=== PATIENT | female | born 1960 | race Caucasian/White ===

== ENCOUNTER 2022-06-09 15:01 | Outpatient (CLI) | payer OTHER, SELFPAY ==
--- OUTSIDE RECORDS SUMMARY | 2022-06-09 15:03 | XMS_ITS | Encounter Summary ---
:1960 Author Organization [employer] Address [address] [place] [address] Care Team Providers Name Role Phone Adarsh Salazar MD Primary Care Provider Reason for Referral Therapies (Routine) - Closed Specialty Diagnoses / Procedures Referred By Contact Refer red To Contact Diagnoses S/P total knee arthroplasty, left Rodney Moore MD [address] [place] [address] [place], [place] [address] Referral ID Status Reason Start Date Expiration Date Visits Requ ested Visits Authorized [id number] Closed 04/06/2018 06/05/2018 1 1 Scheduling Instructions If scheduling assistance is needed, cha mahan inquire with the medical office staff upon exiting your appointment or contact the ordering clinic for recommended locations. This recommended service/s may not be co armaan by your insurance coverage. To find out your specific benefit coverage, please c all the number on your insurance card. Reason for Visit Reason Comments AFTERCARE, POST-OP CHECK Left Knee Encounter Details Date Type Department Care Team Description 04/06/2018 Office Visit [facility] Rodney Moore MD S/P total knee arthroplasty, left (Prima ry Dx); CENTER [address] [place] [address] Surgical afterarnold, musculoskeletal syst em; [address] [place], [place] Carpal tunnel syndrome, [place] [id number] [phone] Social History Tobacco Use Types Packs/Day Years Used Date Smoking Tobacco: Never Smokeless Tobacco: Never Sex Assigned at Date Recorded Not on file documented as of this encounter Progress Notes Rodney Moore MD - 04/06/2018 8:50 AM CDT [facility] Orthopaedic Surgery Postoperative Follow-Up 04/06/2018 History of Present Illness: Celeste Eid is a 58 y.o. female status-post left knee total arthroplasty completed on 02/11/18 who presents for postoperative follow-up. I last evaluated the patient on 03/14/18, at which time she felt some pinching pain around the tibia. However, she felt she had been progressing well within her recovery while compliant with physical therapy. After discussion, she elected to continue working on range of motion with physical therapy. Today, the patient reports feeling better. States that the pinching pain from before has moderately subsided. She has been progressing while compliant with physical therapy. However, she is now more concerned about numbness diffusely throughout her bilateral hands, left greater than right. Feels the numbness the most when driving her car. Physical Exam: General: The patient is in no acute distress. She ambulates with a non-antalgic gait. Cardiovascular/Neuro: Sensation, motor function, and circulation are intact in the distal lower extremities. Left Knee: Range of motion is 0-115 degrees of flexion. Ambulating with a mild limp. Bilateral Hands: No thenar muscle atrophy. Sensations intact. Tinel's Test is negative bilaterally. Positive carpal compression test bilaterally. Phalen's test is negative bilaterally. Assessment: ICD-10-CM 1. S/P total knee arthroplasty, left Z96.652 2. Surgical aftercare, musculoskeletal system Z47.89 3. Carpal tunnel syndrome, bilateral G56.03 Plan: She will continue with her rehab exercises. Follow-up examination one year postoperatively with x-rays, 3 views of the left knee. As for her bilateral hands, her exam is consistent with carpal tunnel syndrome in her bilateral hands. We will consider an EMG study if her symptoms worsen; she is to call if it does. Meanwhile, she will wear a brace at night. All questions were answered. Scribe Disclosure: Horacio Alvarez, am serving as a scribe to document services personally performed by Rodney Moore MD at this visit, based upon the provider's statements to me. All documentation has been reviewed by theaforementioned provider prior to being entered into the official medical record. Portions of this medical record were completed by a scribe. UPON MY REVIEW AND AUTHENTICATION BY ELECTRONIC SIGNATURE, this confirms (a) I performed the applicable clinical services, and (b) the recordis accurate. Rodney Moore MD documented in this encounter Plan of Treatment Scheduled Referrals Name Type Priority Associated Diagnoses Order S [facility] Physical Therapy Referral Routine S/P total knee arthropla sty, Ordered: 04/06/2018 left documented as of this encounter Visit Diagnoses Diagnosis S/P total knee arthroplasty, left - Prim asher Surgical aftercare, musculoskeletal syst em [facility], NEC Carpal tunnel syndrome, bilateral Carpal tunnel syndrome documented in this encounter Care Teams Bicycle Technician Relationship Specialty Start Date End Date Adarsh Salazar MD PCP - General Urgent Care 02/11/18 [address] [place] [address] documented as of this encounter
--- OUTSIDE RECORDS SUMMARY | 2022-06-09 15:03 | XMS_ITS | Encounter Summary ---
:1960 Author Organization [email or web address] Address [address] [place] [address] Care Team Providers Name Role Phone Adarsh Salazar MD Primary Care Provider Reason for Visit Reason Comments Knee Pain or Injury left Encounter Details Date Type Department Care Team Description 03/14/2018 Office Visit [facility] Rodney English MD S/P total knee arthroplasty, left (Prima ry Dx); [address] Aftercare following surgery of the [facility] [address] [place] [address] [phone] Social History Tobacco Use Types Packs/Day Years Used Date Smoking Tobacco: Never Smokeless Tobacco: Never Sex Assigned at Date Recorded Not on file documented as of this encounter Patient Instructions Patient InstructionsSylvia Akhtar ATC - 03/14/2018 2:[address] Rodney Moore MD Orthopaedic Surgeon, Board Certified Automation Qa Tester: Leida Spann Please contact Leida for all administrative questions [phone] Please contact Nurse Triage for all medical related questions at [phone] Medication Requests: Prescriptions are not filled on Weekends or on Weekdays after 3:00PM For all medication refills: Request a refill using MyChart or contact your Pharmacy documented in this encounter Progress Notes Rodney Moore MD - 03/14/2018 2:50 PM CDT [facility] Orthopaedic Surgery Postoperative Follow-Up 03/14/2018 History of Present Illness: Celeste Eid is a 58 y.o. female one month status-post left total knee arthroplasty completed on 02/11/18 who presents for postoperative follow-up. She feels like something pinches around the tibia which she has been working on in physical therapy. Otherwise, she feels like physical therapy has been going well. Icing and tylenol have not helped with the pain. Physical Exam: General: The patient is in no acute distress. She ambulates with a walking stick. Cardiovascular/Neuro: Sensation, motor function, and circulation are intact in the distal lower extremities. Left Knee: Range of motion 0-95 degrees. There is a pinch in the lateral side of her knee at end range or flexion. Imaging: Radiographs of the left knee - 2 views (02/11/18): FINDINGS: New postoperative changes of a left knee arthroplasty. Hardware is well seated without evidence for complication. Postoperative gas about the joint. I ordered and independently reviewed and interpreted the imaging studies above; the results were discussed with the patient. Assessment: ICD-10-CM 1. S/P total knee arthroplasty, left Z96.652 2. Aftercare following surgery of the musculoskeletal system Z47.89 Plan: Work on bending the knee and soft massaging the area of the pinch. Continue with rehab exercises. Take oral antiinflammatories as tolerated. Follow-up in two weeks to check progress. All of her questions were answered. Scribe Disclosure: I, Syh Barreto, am serving as a scribe to document services personally performed by Rodney Moore MD at this visit, based upon the provider's statements to me. All documentation has been reviewed by the aforementioned provider prior to being entered into the official medical record. Portions of this medical record were completed by a scribe. UPON MY REVIEW AND AUTHENTICATION BY ELECTRONIC SIGNATURE, this confirms (a) I performed the applicable clinical services, and (b) the recordis accurate. Rodney Moore MD documented in this encounter Plan of Treatment Not on filedocumented as of this encounter Visit Diagnoses Diagnosis S/P total knee arthroplasty, left - Prim asher Aftercare following surgery of the [facility] system [facility] documented in this encounter Care Teams Oil Painter Relationship Specialty Start Date End Date Adarsh Salazar MD PCP - General Urgent Care 02/11/18 [address] [place] [address] documented as of this encounter
--- OUTSIDE RECORDS SUMMARY | 2022-06-09 15:03 | XMS_ITS | Encounter Summary ---
:1960 Author Organization [facility] Address [address] [place] [address] Care Team Providers Name Role Phone Adarsh Salazar MD Primary Care Provider Reason for Visit Reason Comments APPOINTMENT REQUEST Encounter Details Date Type Department Care Team Description 10/13/2019 Telephone [facility], Physician APPOINTMENT REQUEST Care [address] [place], [place] [phone] (Wo rk) Social History Tobacco Use Types Packs/Day Years Used Date Smoking Tobacco: Never Smokeless Tobacco: Never Sex Assigned at Date Recorded Not on file documented as of this encounter Nursing Notes Earl Mccurdy RN - 10/13/2019 3:06 PM CDT Called and spoke to the patient. Child Care Team Lead offered her a phone/video visit. Patient declined, she wouldlike to have a cortisone injection in her knee. Child Care Team Lead explained to the patient that we are not preforming Cortisone injections because of its side effect of decreasing the immune system and the COVID-19 precautions. Patient voiced understanding. She will call us back if needed. Yesika Roman RN - 10/13/2019 2:57 PM CDT Images from the original note were not included. Omari Sneed, DO You 6 minutes ago (2:50 PM) OK to offer phone or video visit. Routing comment Yesika Roman RN - 10/13/2019 2:25 PM CDT Pt. Asking to come in for a right knee steroid injection. These aren't being done in the [facility] due to the decrease in the immune systems ability to fight off injection. This is due to the current COVID19. Pt. Hasn't been seen here at the [facility] for her right knee. Initially for the left. Dr. Moore has donea left TKA. Advise. Phone/video call? Come in? Medications? Her insurance runs out on and would to do something before this happens. Carmen Aguilar - 10/13/2019 2:11 PM CDT Has the patient recently had surgery or an injury? No How may we help you today? Patient calling in to see if she is able to go to the [facility] for her right knee. She is requesting an injection due to her insurance being done on 10/16. Describe your symptoms/concerns: patient states she is in pain When did the issue start: n/a Have you been seen for this recently?: n/a [Automotive Salesperson/Appt Center: If yes, please include date and provider.] Is it okay to leave detailed message on your voicemail? Yes [Automotive Salesperson/Appt Center: If this call is after 3 p.m., communicate to patient: If we are not able to get back to you by the end of the day and your symptoms worsen please contact the Careline] documented in this encounter Plan of Treatment Not on filedocumented as of this encounter Visit Diagnoses Diagnosis Right knee pain, unspecified chronicity - Primary documented in this encounter Care Teams Principal Archaeologist Relationship Specialty Start Date End Date Adarsh Salazar MD PCP - General Urgent Care 02/11/18 [address] [place] [address] documented as of this encounter
--- OUTSIDE RECORDS SUMMARY | 2022-06-09 15:03 | XMS_ITS | Clinical Summary ---
:1960 Author Organization [facility] Address [address] [place] [address] Care Team Providers Name Role Phone Adarsh Salazar MD Primary Care Provider Source Comments You are receiving this document as you are listed as the primary care provider,follow-up provider, or the patient has been referred to you for consultation.This is in compliance with the Medicare and Medicaid EHR Incentive Program,which states Providers who transition their patient to another setting of careor provider of care or refers their patient to another provider of care shouldprovide summarycare record for each transition of care or referral. [facility] Allergies No known active allergies Medications Medication Sig Dispensed Refills Start End Date Status Date senna (SENOKOT) 8.6 MG Take 1 Tablet by 30 Tablet 0 Active tabletIndications: mouth daily. Take 8 Constipation while on narcotics. Hold for loose stools. Indications: Constipation acetaminophen (TYLENOL) Take 2 Tablets by 100 Tablet 0 01 Active 325 MG mouth 4 times a 8 tabletIndications: Pain day. 24 hour limit of acetaminophen (TYLENOL) is 4000mg. Each tablet contains 325mg of acetaminophen. Please be aware of acetaminophen limit when taking other medications that contain acetaminophen. Indications: Pain HYDROmorphone (DILAUDID) Take 1-2 Tablets 56 Tablet 0 02/12/20 1 Active 2 MG tablet by mouth every 4 8 hours as needed for Pain. Take 1 tablet for pain rated at 0-5. Take 2 tablets for pain rated 6-10. hydroCHLOROthiazide Take 25 mg by 0 Active (ORETIC) 25 MG mouth daily. tabletIndications: Indications: High Hypertension Blood Pressure Disorder Meloxicam (MOBIC) 15 MG Take 15 mg by 0 Active tabletIndications: Pain mouth daily. Indications: Pain metoprolol succinate Take 100 mg by 0 Active (TOPROL XL) 100 MG 24 mouth daily at hour release bedtime. tabletIndications: Indications: High Hypertension Blood Pressure Disorder HYDROcodone-acetaminophe Take 1 Tablet by 30 Tablet 0 02/25/20 1 Active n (NORCO) 5-325 MG mouth every 6 8 tablet hours as needed. For post op pain. oxyCODONE (ROXICODONE) 5 Take 1-2 tablets 42 Tablet 0 02/26/20 1 Active MG immediate release by mouth, every 8 tablet 4-6 hours as needed. Pain Active Problems Problem Noted Date Primary osteoarthritis of left knee 12/20/2017 Overview: Added automatically from request for florence rooney [id number] Family History Medical History Relation Name Comments Heart Disease Father Cancer Mother Cancer Sister Relation Name Status Comments Father Mother Sister Social History Tobacco Use Types Packs/Day Years Used Date Smoking Tobacco: Never Smokeless Tobacco: Never Sex Assigned at Date Recorded Not on file Last Filed Vital Signs Vital Sign Reading Time Taken Comments Blood Pressure 126/65 02/12/2018 10:56 AM CDT Pulse 67 02/12/2018 10:56 AM CDT Temperature 36.6 ??C (97.9 ??F) 02/12/2018 10:56 AM CDT Respiratory Rate 16 02/12/2018 10:56 AM CDT Oxygen Saturation 93% 02/12/2018 10:56 AM CDT Inhaled Oxygen Concentration - - Weight 120.2 kg (265 lb) 02/11/2018 7:29 AM CDT Height 162.6 cm (5' 4) 02/11/2018 7:29 AM CDT Body Mass Index 45.49 02/11/2018 7:29 AM CDT Plan of Treatment Health Maintenance Due Date Last Done Comments Cervical Cancer Screening Due 1960 Colon Cancer Screening Plan Due 1960 Hep C Screening (Preventive 1960 Services) Mammogram 1960 COVID-19 Vaccine (#1) 1960 HIV Screening (Preventive 1975 Services) Adult Preventive Visit 1977 Cholesterol 02/18/2004 Zoster/Shingles (1 of 2) 2009 Influenza (#1) 2022 DTaP/Tdap/Td (2 - Tdap) 03/07/2026 03/07/2016 HepA Aged Out No longer eligib le based on patient's age to complete this topic HepB Aged Out No longer eligib le based on patient's age to complete this topic Hib Aged Out No longer eligib le based on patient's age to complete this topic IPV (Polio) Aged Out No longer eligib le based on patient's age to complete this topic MCV4 Aged Out No longer eligib le based on patient's age to complete this topic Pneumococcal Aged Out No longer eligib le based on patient's age to complete this topic Medical Devices Implanted Type Area Medical Historian Device Shelf Model / Identifier Expiration Date Ser ial / Lot Insert Xlpe Art 3-4 Lt 10mm - [id number] DEVICE Left: S 06/23/2025 [id number] / Implanted: Qty: 1 on 02/11/2018 by Rodney Moore MD at [facility] KNEE 0000 / [id number] Dietiker, Personal/Family Self 1960 [id number] [facility] (Home) [place] [address] Advance Directives Latest Code Status on File Code Status Date Activated Date Inactivated Comments Full Code 02/11/2018 1:26 PM 02/12/2018 5:26 PM Care Teams Half Sole Fitter Relationship Specialty Start Date End Date Adarsh Salazar MD PCP - General Urgent Care 02/11/18 [address] [place] [address]
--- OUTSIDE RECORDS SUMMARY | 2022-06-09 15:03 | XMS_ITS | Encounter Summary ---
:1960 Author Organization [employer] Address [address] [address] Care Team Providers Name Role Phone Adarsh Salazar MD Primary Care Provider Reason for Visit Reason Comments Return to Work/School Encounter Details Date Type Department Care Team Description 03/17/2018 Telephone [facility] Rodney Moore MD Return to Work/School [place] [address] [facility] [address] [place], [place] [phone] (Wo rk) Social History Tobacco Use Types Packs/Day Years Used Date Smoking Tobacco: Never Smokeless Tobacco: Never Sex Assigned at Date Recorded Not on file documented as of this encounter Nursing Notes Radha Jones RN - 03/18/2018 4:00 PM CDT RTW form faxed to Liseth Briggs at [phone]. Pt informed. Leida Spann - 03/18/2018 1:09 PM CDT Leida, ??Will you create a note allowing her to return to work as requested. Thanks, Rodney Routed to nurse triage to assist with witting and signing note. 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 Thank you! Radha Jones, RN - 03/17/2018 1:42 PM CDT Pt would like to return to work March 23 and would like note stating this. States she has made progress and has a sit down job, the pinch has improved greatly in her leg. Feels she does more at home then she would be doing at work. States financially needs to get back to work. Would like faxed to her work at [phone]. Pt requests call when note completed and to let her know it'lu to return to work. documented in this encounter Plan of Treatment Not on filedocumented as of this encounter Visit Diagnoses Not on filedocumented in this encounter Care Teams Motorboat Mechanic Helper Relationship Specialty Start Date End Date Adarsh Salazar MD PCP - General Urgent Care 02/11/18 [address] [place] [address] documented as of this encounter
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
--- OUTSIDE RECORDS SUMMARY | 2022-06-09 15:03 | XMS_ITS | Encounter Summary ---
:1960 Author Organization [facility] Address [address], [place] [address] Care Team Providers Name Role Phone Adarsh Salazar MD Primary Care Provider Encounter Details Date Type Department Care Team Description 05/14/2019 Notes/Orders [facility] Rodney Gloria MD [address] [place] [address] [place], [place] [address] [place] [address] [phone] (Wo rk) Social History Tobacco Use Types Packs/Day Years Used Date Smoking Tobacco: Never Smokeless Tobacco: Never Sex Assigned at Date Recorded Not on file documented as of this encounter Plan of Treatment Not on filedocumented as of this encounter Visit Diagnoses Not on filedocumented in this encounter Care Teams Digital Solution Architect Relationship Specialty Start Date End Date Adarsh Salazar MD PCP - General Urgent Care 02/11/18 [address] [place] [address] documented as of this encounter
--- OUTSIDE RECORDS SUMMARY | 2022-06-09 15:03 | XMS_ITS | Encounter Summary ---
:1960 Author Organization [facility] Address [address], [place] [address] Care Team Providers Name Role Phone Adarsh Salazar MD Primary Care Provider Encounter Details Date Type Department Care Team Description 07/01/2018 Notes/Orders [facility] Rodney Gloria MD [address] [place] [address] [place], [place] [address] [place] [address] [phone] (Wo rk) Social History Tobacco Use Types Packs/Day Years Used Date Smoking Tobacco: Never Smokeless Tobacco: Never Sex Assigned at Date Recorded Not on file documented as of this encounter Plan of Treatment Not on filedocumented as of this encounter Visit Diagnoses Not on filedocumented in this encounter Care Teams Manager People Relationship Specialty Start Date End Date Adarsh Salazar MD PCP - General Urgent Care 02/11/18 [address] [place] [address] documented as of this encounter
--- OUTSIDE RECORDS SUMMARY | 2022-06-09 15:03 | XMS_ITS | Encounter Summary ---
:1960 Author Organization [facility] Address [address] [place] [address] Care Team Providers Name Role Phone Adarsh Salazar MD Primary Care Provider Reason for Visit Reason Comments Questions Encounter Details Date Type Department Care Team Description 03/09/2018 Telephone [facility] Rodney Moore MD Questions [address] [facility] [place] [address] [place] [address] [phone] (Wo rk) Social History Tobacco Use Types Packs/Day Years Used Date Smoking Tobacco: Never Smokeless Tobacco: Never Sex Assigned at Date Recorded Not on file documented as of this encounter Nursing Notes Monica Tello RN - 03/09/2018 3:26 PM CDT Surgery Date: 02/11/2018 Surgeon(s) and Role: * Rondey Moore MD - Primary ??Procedure(s) (LRB): TOTAL KNEE JOINT REPLACEMENT (Left) Patient is calling wondering if she can back away from narcs and do motrin. Patient admits to taking1/2 oxy to help her sleep at night and another 1/2 after therapy. She would like to back away from the narcs and use motrin to help w/ her swelling. Said Dr. Moore allows for NSAID use post op and shecan use just remember about the 2400mg in a 24 hour period. Patient verbalized understanding and said she would continue to ice and elevate. ?? documented in this encounter Plan of Treatment Not on filedocumented as of this encounter Visit Diagnoses Not on filedocumented in this encounter Care Teams Adult Literacy Instructor Relationship Specialty Start Date End Date Adarsh Salazar MD PCP - General Urgent Care 02/11/18 [address] [place] [address] documented as of this encounter
--- OUTSIDE RECORDS SUMMARY | 2022-06-09 15:03 | XMS_ITS | Encounter Summary ---
:1960 Author Organization [facility] Address [address] [place] [address] Care Team Providers Name Role Phone Adarsh Salazar MD Primary Care Provider Reason for Visit Reason Comments Questions Encounter Details Date Type Department Care Team Description 06/07/2018 Telephone [facility] Rodney Gloria MD Questions [address] [facility] [place], [place] [address] [place] [address] [phone] (Wo rk) Social History Tobacco Use Types Packs/Day Years Used Date Smoking Tobacco: Never Smokeless Tobacco: Never Sex Assigned at Date Recorded Not on file documented as of this encounter Nursing Notes Monica Tello RN - 06/08/2018 4:21 PM CST Sounds like it's from her back. ??She could by seen in [facility]. Thanks, Rodney Moore MD Left a message telling the patient the above note from Dr. Moore and provided her with the [facility] this weekend. Left our return number in case she had questions. [facility] NURSE Monica Tello RN - 06/07/2018 2:08 PM CST Procedure Date: 02/11/2018 10:50 AM Attending MD: Rodney Moore MD Procedure: Primary Left Knee Arthroplasty: Total Femoral, Tibial, Patella Calling today w/ issues concerning her L leg. Has shooting pain like a lightening bolt with needles and pins starting from the knee into the thigh. It hurts especially when she stands up from a chair and keeps her up at night. She states her Left side and heel are numb. Not sure if it is coming form her knee but no one will see her b/cause of her recent surgery w/ you.Do you think PT might help or are do you think she should see you in clinic first? If you approve PTshe wants to go [facility]. [facility] NURSE documented in this encounter Plan of Treatment Not on filedocumented as of this encounter Visit Diagnoses Not on filedocumented in this encounter Care Teams E Commerce Solution Architect Relationship Specialty Start Date End Date Adarsh Salazar MD PCP - General Urgent Care 02/11/18 [address] [place] [address] documented as of this encounter
--- OUTSIDE RECORDS SUMMARY | 2022-06-09 15:04 | XMS_ITS | Encounter Summary ---
:1960 Author Organization [facility] Address [address] [place] [address] Care Team Providers Name Role Phone Needs Pcp, Assignment Primary Care Provider Reason for Visit Reason Comments LAB RESULTS Positive Methicillin Sensiti ve Staph Aureus MSSA Encounter Details Date Type Department Care Team Description 02/04/2018 Telephone [facility] Rodney Moore MD LAB RESULTS (Positive CENTER [address] [address] Methicillin Sensitive [address] [place], [place] Staph Aureus MSSA) [place], [place] [address] [address] [address] [phone] (Wo rk) Social History Tobacco Use Types Packs/Day Years Used Date Smoking Tobacco: Never Smokeless Tobacco: Never Sex Assigned at Date Recorded Not on file documented as of this encounter Nursing Notes Jada Engle RN - 02/04/2018 1:15 PM CDT Patient has positive Methicillin Sensitive Staph Aureus (MSSA) nasal swab. Discussed appropriated decolonization protocol to happen 5 days prior to total joint surgery. Information packet mailed to patient and prescriptions sent to pharmacy [facility] in [place], which was confirmed at 1:1 education visit. Patient to call with any other questions or concerns. documented in this encounter Plan of Treatment Not on filedocumented as of this encounter Visit Diagnoses Not on filedocumented in this encounter Care Teams Runner On Relationship Specialty Start Date End Date Needs Pcp, Assignment PCP - General 02/03/18 02/10/18 [place] [address] documented as of this encounter
--- OUTSIDE RECORDS SUMMARY | 2022-06-09 15:04 | XMS_ITS | Encounter Summary ---
:1960 Author Organization [facility] Address [address] [place] [address] Care Team Providers Name Role Phone Adarsh Salazar MD Primary Care Provider Reason for Visit Auth/Cert Specialty Diagnoses / Procedures Referred By Contact Refer red To Contact Diagnoses Primary osteoarthritis of left knee Procedures TOTAL KNEE JOINT REPLACEMENT Referral ID Status Reason Start Date Expiration Date Visits Requ ested Visits Authorized [id number] 1 1 Encounter Details Date Type Department Care Team Description 02/11/2018 Surgery Anabaptism Operating OscarRodney MD TOTAL KNEE JOINT Room [address] REPLACEMENT [address] [place] [address] [place] [address] [phone] Social History Tobacco Use Types Packs/Day Years Used Date Smoking Tobacco: Never Smokeless Tobacco: Never Sex Assigned at Date Recorded Not on file documented as of this encounter Last Filed Vital Signs Vital Sign Reading Time Taken Comments Blood Pressure 142/98 02/11/2018 7:29 AM CDT Pulse 76 02/11/2018 7:29 AM CDT Temperature 36.2 ??C (97.2 ??F) 02/11/2018 7:29 AM CDT Respiratory Rate 18 02/11/2018 7:29 AM CDT Oxygen Saturation 97% 02/11/2018 7:29 AM CDT Inhaled Oxygen Concentration - - Weight 120.2 kg (265 lb) 02/11/2018 7:29 AM CDT Height 162.6 cm (5' 4) 02/11/2018 7:29 AM CDT Body Mass Index 45.49 02/11/2018 7:29 AM CDT documented in this encounter Medications at Time of Discharge Medication Sig Dispensed Refills Start Date End Date acetaminophen (TYLENOL) Take 2 Tablets by 100 Tablet 0 02/11 325 MG tabletIndications: mouth 4 times a Pain day. 24 hour limit of acetaminophen (TYLENOL) is 4000mg. Each tablet contains 325mg of acetaminophen. Please be aware of acetaminophen limit when taking other medications that contain acetaminophen. Indications: Pain hydroCHLOROthiazide Take 25 mg by mouth 0 (ORETIC) 25 MG daily. Indications: tabletIndications: High Blood Pressure Hypertension Disorder HYDROmorphone (DILAUDID) 2 Take 1-2 Tablets by 56 Tablet 0 02/11/2018 MG tablet mouth every 4 hours as needed for Pain. Take 1 tablet for pain rated at 0-5. Take 2 tablets for pain rated 6-10. Meloxicam (MOBIC) 15 MG Take 15 mg by mouth 0 tabletIndications: Pain daily. Indications: Pain metoprolol succinate Take 100 mg by 0 (TOPROL XL) 100 MG 24 hour mouth daily at release tabletIndications: bedtime. Hypertension Indications: High Blood Pressure Disorder senna (SENOKOT) 8.6 MG Take 1 Tablet by 30 Tablet 0 018 tabletIndications: mouth daily. Take Constipation while on narcotics. Hold for loose stools. Indications: Constipation aspirin EC 81 MG enteric Take 2 Tablets by 84 Tablet 0 01/1703/25/2018 coated tabletIndications: mouth daily for 42 Thrombosis prevention days. Over the following orthopedic counter medication. surgery. If on previous aspirin, resume previous aspirin dosing after 42 days. Indications: Thrombosis prevention following orthopedic surgery. documented as of this encounter Progress Notes Martha Christianson RN - 02/12/2018 3:01 PM CDT DISCHARGE O: Patient safely discharged to home. D: Patient is alert and oriented x 4. Pt up independently with assistive device . Discharge criteriamet. Vaccines addressed prior to discharge. A: Discharge instructions and medications reviewed and given to patient and significant other. Written medication education material provided on dilaudid, tylenol, aspirin,senna including possible sideeffects. Prescriptions filled by [facility] pharmacy. Belongings checklist reviewed with patient and belongings sent. Equipment sent: ice packs. Care plan issues addressed and education record updated. R: Patient and significant other verbalizes understanding and teaches back discharge instructions. Patient discharged by: wheelchair with family. Adriana Bell OTR/L - 02/12/2018 1:30 PM CDT Occupational Therapy Occupational Therapy Orthopedic Hip/Knee ADL Evaluation Date of admit: 02/11/2018 6:55 AM History of current medical diagnosis: TOTAL KNEE JOINT REPLACEMENT Past medical history: No past medical history on file. MD order: Eval and Treat: Total Joint Protocol General Current living situation: Lives in a house with her - 6 steps to enter Prior ADL/IADL status: Patient is independent with all basic ADLs Current adaptive equipment: Grab bars: in shower and Comfort height toilet Occupation: not working Precautions: Falls Communication: Verbal/appropriate Location of treatment: [facility] Objective Information Current upper extremity ROM: Right: WFL Left: WFL Current upper extremity strength: Right: WFL Left: WFL Current Visual Functioning: Reports no concerns Current Cognitive Functioning: Patient answers questions appropriately Current ADL Performance: Grooming/Hygiene: with standby assist Upper body dressing: with standby assist Lower body dressing: with minimal assistance Recliner transfer: with standby assist Bed mobility: with standby assist Toileting/toilet transfer: with standby assist Bathing/Tub/Shower transfer: with contact guard assist Meal Prep: with standby assist- issued a walker bag for ease with item retrieval/transportation Homemaking/Home management: with standby assist Gait/mobility: with standby assist with FWW Treatment Today: Educated patient on role of OT and progression of care. and OT educated patient on falls prevention techniques for increased safety at home. Patient verbalized understanding following education. Recommended adaptive equipment: Cap And Stud Machine Operator, Tub bench/Shower chair, Grab bars: shower and Comfort height toilet Resource information provided: No- spouse works at [employer] and is able to obtain needed equipment Response to treatment: Endurance/activity tolerance: Patient tolerated treatment well. Cooperation: good Pain scale 0 to 10 (low to high): With activity 2/10 Functional Limitations/Impairments Patient's functional limitations are: ?? Decreased ADL/IADL independence ?? Decreased functional mobility ?? Decreased activity tolerance/endurance ?? Pain Barriers to Learning Patient's barriers to learning are: ?? none Occupational Therapy Interventions Patient's Occupational Therapy interventions are: ?? Functional mobility ?? Work simplification ?? AE recommendations ?? ADL/IADL training ?? Home safety ?? Transfers Outcomes The following goals have been established: ?? Patient and family goals: To go home today ?? Functional outcome goals: ?? Patient will demonstrate lower body dressing without Adaptive Equipment with minimal assistance in 3 days. MET- spouse to assist as needed ?? Patient will demonstrate walk-in/tub shower transfers with Adaptive Equipment with contact guard assist in 3 days. MET- spouse to assist ?? Patient will demonstrate toileting/toilet transfer with Adaptive Equipment with standby assist in3 days. MET ?? Patient will demonstrate bed transfer/bed mobility without Adaptive Equipment with standby assistin 3 days. MET ?? Patient will demonstrate kitchen mobility/household mobility with standby assist in 3 days. MET ?? Patient will demonstrate safe chair/recliner transfer with standby assist in 3 days. MET ?? senior care goal: Patient will maximize independence and safety with ADL/IADLs ?? Continuation of inpatient OT services: Frequency: one time only Hospital - Functional Limitation Reporting: Based on clinical findings, Self Care Current Status (G8987): At least 1 percent but less than 20 percent impaired, limited or restricted (CI) Self Care Goal Status (G8988): At least 1 percent but less than 20 percent impaired, limited or restricted (CI) Self Care Discharge Status (G8989): At least 1 percent but less than 20 percent impaired, limited orrestricted (CI) ?? Goals reviewed with patient/family: Yes ?? Other services: Physical Therapy ?? Rehab potential: Good ?? Multidisciplinary Plan of Care completed: Yes ?? Evaluation Complexity Rating: Occupational profile and history: low Assessment: low Clinical decision making: low Overall complexity rating: low ?? Timed Code Treatment Minutes: 5 ?? Total Treatment Minutes: 25 ?? Plan for next session: none Initial Discharge Recommendations Patient's initial discharge recommendation is: From ADL/safety standpoint, patient is safe to discharge home today with: increased assist for: bathing, meal prep, homemaking and driving. Disposition recommendations discussed with patient. Patient agrees with recommendations. Signature: Adriana Bell MA, OTR/L #[id number] 02/12/2018 1:37 PM NOTE: The clinician's signature certifies medical necessity for the treatment plan above. Bari Cantu, PT - 02/12/2018 1:20 PM CDT Physical Therapy [facility] Physical Therapy Daily Progress Note Patient's diagnosis: s/p left TKA, 02/11/18 GENERAL INFORMATION Mood: pleasant Cooperation: full Treatment Location: [facility] Special Equipment: none Precautions: falls risk Patient Self Report : Doing well, pain is under good control. Hoping to go home today. Pain: 2/10 Location: left knee OBJECTIVE Objective: Range of Motion: knee flexion: 50 degrees knee extension: 5 degrees from 0 Strength: independent with SLR Patient???s treatment includes: Gait: Weight bearing status - FWBAT, left LE Equipment: wheeled walker Assistance: SBA Distance: 200 x 2 Gait Pattern: reciprocal step through pattern Balance: good with walker Endurance: adequate for household mobility Stairs: Up/down 3 stairs x 2 with 1-2 rails and contact guard assist using step to pattern. Instruction in proper sequence. Transfers: Sit <> Stand: supervision Supine <> sit: independent Other Treatment s : TKA exercises: quad sets, hamstring sets, heel slides, straight leg raise, short arc quad, ankle pumps, and seated heel slides. Each done for 10 reps. Patient transferred into bedside recliner chair after session. Call light in place. Reminded not to get up alone. Patient Education Provided : Exercise instruction, POC, stair training PATIENT FINDINGS Patient finding s include: Patient's response to RX: good Barriers to Learning : none Assessment & Progress Toward Goals : Patient progress and able to ambulate 200 feet x 2 with wheeled walker SBA. Patient able to ambulate up/down 6 steps with 1 rail (similar to home set up). Patient requires little to no assist with transfers. ROM limited by muscle guarding. Updated progress toward goals set on 02/11/18: Patient will transfer supine to/from sit with SBA in 1-3 days. Patient will transfer sit to/from stand with SBA in 1-3 days. Patient will ambulate with wheeled walker and standby assist for 200 feet in 1-3 days. Patient will climb 6 steps contact guard assist with 1 rail and AD in 1-3 days. Therapist Discharge Recommendations: Patient is safe to discharged home from a mobility standpoint when medically able. Recommend OP PT. Interdisciplinary Communication: none Plan for Next Treatment: TKA exercises, gait with walker, practice on the stairs. Timed codes: Therapeutic exercise x 20 Timed code treatment minutes: 20 Treatment Time: 20 minutes Total timed treatment minutes today: 48 minutes Therapist: Bari Cantu, PT 1:54 PM 02/12/2018 Karma Wakefield PA-C - 02/12/2018 12:01 PM CDT ORTHO PROGRESS NOTE PROCEDURE: TOTAL KNEE ARTHROPLASTY POD # 1 RILEY Eid is a 57 y.o. female status post left total knee arthroplasty. Patient states she is not having any pain. States she has a high pain tolerance. Has had multiple back surgeries and wasconcerned that knee replacement would be painful based on other people's reports, but says she is doing well. Patient denies difficulty breathing chest pain, calf pain, no shortness of breath no nauseaand no vomiting . Anticipating going home today if cleared by PT. OBJECTIVE BP 126/65 (BP Location: Left Arm, BP Cuff Size: Adult Regular) Pulse 67 Temp 36.6 ??C (97.9 ??F)(Oral) Resp 16 Ht 1.626 m (5' 4) Wt 120.2 kg (265 lb) SpO2 93% BMI 45.49 kg/m2 Patient alert and oriented x 3. Patient is in no acute distress. Wound is clean, dry and intact. Distal CMS is intact. Calf is soft and non-tender. Lab Results Component Value Date HGB 11.0 (L) 02/12/2018 ASSESSMENT Status post left total knee arthroplasty POD # 1. PLAN Continue current POC. Discharge: To home today if cleared by PT Karma Wakefield PA-C Cristopher Brooks PT - 02/12/2018 8:49 AM CDT Physical Therapy [facility] Physical Therapy Daily Progress Note Patient's diagnosis: s/p left TKA, 02/11/18 GENERAL INFORMATION Mood: pleasant Cooperation: full Treatment Location: [facility] Special Equipment: IV Precautions: falls risk Patient Self Report : Doing well, pain is under good control. Hoping to go home later today. Pain: 2/10 Location: left knee OBJECTIVE Objective: Range of Motion: knee flexion: 45 degrees knee extension: 5 degrees from 0 Strength: independent with SLR Patient???s treatment includes: Gait: Weight bearing status - FWBAT, left LE Equipment: wheeled walker Assistance: contact guard assist Distance: 220 Gait Pattern: reciprocal step through pattern Balance: good with walker Endurance: adequate for household mobility Stairs: Up/down 3 stairs with 2 rails and contact guard assist using step to pattern. Instruction in proper sequence. Transfers: Sit <> Stand: supervision Supine <> sit: independent Other Treatment s : TKA exercises: quad sets, hamstring sets, heel slides, straight leg raise, short arc quad, ankle pumps, and seated heel slides. Each done for 10 reps. Patient transferred into bedside recliner chair after session. Call light in place. Reminded not to get up alone. Patient Education Provided : Exercise instruction, POC for am and pm sessions, stair training PATIENT FINDINGS Patient finding s include: Patient's response to RX: good Barriers to Learning : none Assessment & Progress Toward Goals : off to a good start. Moving well with walker, requires little to no assist with transfers. Able to initiate stair training. ROM limited by muscle guarding. Updated progress toward goals set on 02/11/18: Patient will transfer supine to/from sit with SBA in 1-3 days. Patient will transfer sit to/from stand with SBA in 1-3 days. Patient will ambulate with wheeled walker and standby assist for 200 feet in 1-3 days. Patient will climb 6 steps contact guard assist with 1 rail and AD in 1-3 days. Therapist Discharge Recommendations: Anticipate patient will be safe to discharge home with family assist either after pm session today or tomorrow. Recommend OP PT. Interdisciplinary Communication: none Plan for Next Treatment: TKA exercises, gait with walker, further practice on the stairs. Timed codes: Therapeutic exercise x 28 Timed code treatment minutes: 28 Treatment Time: 28 minutes Total timed treatment minutes today: - Therapist: Cristopher Brooks, PT 02/12/2018, 9:21 AM Yrn Palacios, PT - 02/11/2018 4:21 PM CDT Physical Therapy Inpatient Initial Evaluation Date of Admit: 02/11/2018 History of current medical diagnosis: Left TKA 02/11/18 Rehab Diagnosis: Pain, Decreased range of motion, Weakness, Deconditioning, Impaired mobility, Decreased balance and Risk of falls Past Medical History: No past medical history on file. MD Order: Eval and Treat. Twice daily For Gait training: Straight Leg Raises, active abduction to operative leg. Isometric, AAROM, AROM to operative leg. Strengthening exercises to other extremities asneeded. SUBJECTIVE Patient reports: Pt wants to move, is getting restless. Mood: pleasant and alert Pain: left knee, not rated, but just took some tylenol Support System: Lives with her . He has bad hips and knees but is off work for next 4 days tohelp pt at home. Prior Functional Level: Mobility: --Independent with community mobility with no assistive device. --Independent with household mobility with no assistive device. Assistance provided by: no assistance needed Home Environment: house Stairs: 6 steps to get to main living area with 1 railing. (split level home) Current Equipment Available: 4 wheeled walker but states it is borrowed and can be exchanged for a FWW Patient PT Goals: Rehab knee. Patient History: ?? Moderate Complexity: 1-2 personal factors and/or comorbidities that impact plan of care: stairs at home OBJECTIVE Treatment Location: Bedside Special Equipment: IV Precautions: falls risk Orientation: Oriented x 3 Cooperation: full -- Strength: Uninvolved extremities WNL's -- Sensation: intact to light touch bilateral lower extremities Vitals: 125/62 Standardized test: AM-PAC 5 Items (out of 20 points): Raw Score: 15, Standardized Score: 38.88, G Code: CK, 44.61% impaired Suggested AM-PAC Basic Mobility Stage: 34-51 - LIMITED MOVING INDOORS: This score suggests significant difficulty in moving about independently and the need for assistance. The patient may be able to move about in a small area of the home that has been adapted to eliminate safety hazards. The patient may have difficulty moving from a sitting to standing position, climbing stairs and may have a great deal of difficulty moving about outdoors and in the community. Gait: Weight bearing status - Left LE: full, as tolerated Equipment: wheeled walker Assistance: contact guard assist Distance: 18 feet Gait Pattern: Antalgic, step to pattern, decreased stance time on left. Instruction provided: WBAT, use of walker. May want to exchange the 4WW she has for a FWW which she states she can do Stairs: Not tested Transfers: Sit to Stand: contact guard assist Supine to Sit: minimal assist Clinical Examination: ?? Low complexity: Addressed 1-2 elements from body structures and functions (see above), and/or functional limitations as noted below. Today's Intervention: Evaluation In supine: AP's, QS independent, SLR with min assist to almost CGA. X 10 reps each In sitting: heelslides x 10 reps Pt in chair with chair alarm on and has call light Education/Handouts: PT POC, AP's every hour for blood circulation, call don't fall, ROM goals, and plan for therapy tomorrow. Multidisciplinary Communication: RN in room durign session. NA assisted to commode. NA will make sure pt comfortable, and with chair alarm. Timed codes: Therapeutic exercise x 5 minutes Total timed minutes: 5 Total treatment time: 25 ASSESSMENT PT Clinical Presentation: ?? Therapeutic exercise x 5 minutes Clinical Decision Making: ?? Low Complexity Eval Patient's impairments are: Decreased strength in left LE Decreased ROM in left knee s/p surgery Decreased endurance Pain Functional limitations: Patient unable to perform bed mobility independently Patient unable to transfer independently Patient unable to ambulate independently Patient unable to climb stairs independently Increased risk of falls Goals/Functional Outcomes: Patient will transfer supine to/from sit with SBA in 1-3 days. Patient will transfer sit to/from stand with SBA in 1-3 days. Patient will ambulate with wheeled walker and standby assist for 200 feet in 1-3 days. Patient will climb 6 steps contact guard assist with 1 rail and AD in 1-3 days. Barriers to Learning: none Rehab Potential: Good PLAN Planned intervention/education: Evaluation Therapeutic Exercise Therapeutic Activity Gait Training Neuromuscular re-education Patient/family education Self care/Home management training Home exercise program instruction Frequency: twice a day Duration: 1-3 days Goals and Plan of Care discussed with patient/family; patient consents to treatment: Yes Discharge Recommendations: Anticipate patient will be safe to discharge home on POD 1 after pm session vs POD 2 am session pending her progress tomorrow. Recommend outpatient PT. Therapist discharge recommendation was not discussed with patient due to pt getting phone call at end of session. Plan for Next Treatment: Ambulate with FWW, go over exercises, measure ROM, stairs ( will be here in pm session to learn how he an help) NOTE: The clinician's signature certifies medical necessity for the treatment plan above. Yrn Palacios, PT 4:53 PM 02/11/2018 Marnie Suresh RN - 02/11/2018 1:34 PM CDT POST-OP O: Patient will have a stable post-op period. D: Pt arrived to room [address] [place] [address], at 1310. Patient is alert and oriented x 4. Initial Vital Signs: Temp: 36.6 ??C (97.8 ??F) (02/11/18 1325) Pulse: 60 (02/11/18 1325) Resp: 16 (02/11/18 1325) BP: (!) 104/90 (02/11/18 1325) SpO2: 94 % (02/11/18 1325) Pain rated at: 0. See Assessment and Doc Flowsheets for equipment and lines/drains. Dressing is clean, dry, intact. A: Monitor vital signs and assess patient per protocol. Patient oriented to bed controls and call lights. Discussed plan of care with patient. See Education Record. R: Patient settled to room. Will continue to monitor. Gianna Woods HUC - 02/11/2018 1:29 PM CDT Hospitalist consult called to voicemail ([phone]) per Dr. Moore's post-op order request. Shy Neil RN - 02/11/2018 8:30 AM CDT IS 2150- goal & actual documented in this encounter H&P Notes Rodney Moore MD - 02/11/2018 8:27 AM CDT Surgery Update for Preop History and Physical For 02/11/2018 scheduled procedure Update to H&P includes: Patient and/or family denies any health changes since the H&P This patient has been evaluated by me today and has been found to be a suitable candidate for surgery. Rodney Moore MD 02/11/2018 Source Note - ProviderYinka MD - 02/10/2018 12:00 AM CDT documented in this encounter Procedure Notes Rodney Moore MD - 02/11/2018 10:50 AM CDT Patient Name: Celeste Eid Procedure Date: 02/11/2018 10:50 AM Date of : 1960 Admit Type: Outpatient Age: 57 Gender: Female Note Status: Finalized Attending MD: Rodney Moore MD Surgical Staff: Rodney Moore MD; ZULEYMA Sanchez Referring MD: Procedure: Primary Left Knee Arthroplasty: Total Femoral, Tibial, Patella Patient Profile: This is a 57 year old female. Refer to note in patient chart for documentation of history and physical. Radiographs showed severe wear of the medial compartment.The patient has failed appropriate non-operative treatment. As a result, surgery is recommended. The alternatives, risks and benefits of surgery were discussed with the patient. The patient verbalized understanding of the risks as well as the alternatives to surgery. The patient wished to proceed with operative intervention. A signed and witnessed informed consent was then placed on the chart. Prior to initiation of the procedure, a time-out was performed: patient identification and proposed procedure were verified by the surgeon in the pre-op area. The operative site was verified by the patient, initialed by the surgeon and verified by the nurse. Pre-OP Diagnosis: Primary osteoarthritis of the knee Post-OP Diagnosis: Primary osteoarthritis of the knee Anesthesia: Anesthesia Administered: Spinal. Findings: Knee General Findings: - There was diffuse severe degenerative joint disease (DJD) in the medial compartment. Description of Procedure: Patient Positioning: - The patient was placed in the supine position on the standard operating table. All body parts were well padded and protected to make sure there were no pressure points. The surgical area was prepped and draped in the appropriate sterile fashion with DuraPrep. The tourniquet was applied. Instruments and Methods: - The [employer] II system was used. A 20 cm incision was made over the anteromedial aspect of the knee for a routine MIS approach. Dissection was carried through the subcutaneous tissues to expose the medial retinaculum. A medial arthrotomy was made beginning at the superomedial border of the patella and extending distally to the medial border of the tibial tubercle. A small split was made in the vastus medialis obliquis and the patella was retracted laterally. The retropatellar fat pad and the anterior portions of the the medial and lateral menisci were resected exposing the anterior tibial plateau. - The tibial alignment guide was position to resect 4 mm from the deficient medial tibial plateau, and the cut was completed. A hole was drilled into the femoral intramedullary canal and the intramedullary alignment guide with the 5 degree left setting was placed. The distal femoral cutting guide was positioned to resect 10 mm of bone from the distal femur. - We selected a number 5 as the appropriate sized femoral component. The cutting block was placed and the cuts were completed for a posterior stabilized implant. Trial reduction found satisfactory fit of the component. - I selected a number 4 as the appropriate sized tibial component. A trial was reduction was then performed with the both components. Soft tissue was satisfactory using the 9 mm insert. The final position of the tibial component was adjusted and the punch for the tibial was impacted. - The articular surface of the patella was resected removing 8 mm of bone. I selected a number 32 mm as the appropriate patella component. - The cut surfaces of the bone were thoroughly irrigated with pulsatile jet lavage and thoroughly dried. Bone cement was mixed and all components were cemented simultaneously. Another trial reduction was performed and I selected the 10 mm insert. The tibial spacer was placed. The knee was passed through a range of motion and there was normal tracking of the patella. Wound Closure: - The wound was thoroughly irrigated and closed. Sterile dressings were applied, the tourniqet was deflated, and the patient was transported to recovery in satisfactory condition. Patient to Recovery Room: - The patient tolerated the procedure well and was brought to the recovery room in good condition. Complications: No Immediate Complications. Procedure Code(s): --- Professional --- 79050, LT, Arthroplasty, knee, condyle and plateau; medial AND lateral compartments with or without patella resurfacing (total knee arthroplasty) Diagnosis Code(s): --- Professional --- M17.12, Unilateral primary osteoarthritis, left knee CPT copyright 2016 [employer]. All rights reserved. The codes documented in this report are preliminary and upon windsmith review may be revised to meet current compliance requirements. Rodney Moore MD 02/11/2018 10:52:31 AM This document has been electronically signed. Number of Addenda: 0 Note Initiated On: 02/11/2018 10:50 AM Procedure Date: 02/11/2018 10:50:01 AM Rdoney Moore MD - 02/11/2018 10:45 AM CDT [facility] Brief Operative Progress Note Surgery Date: 02/11/2018 Surgeon(s) and Role: * Rodney Moore MD - Primary Pre-op Diagnosis: * Primary osteoarthritis of left knee [M17.12] Post-op Diagnosis: * Primary osteoarthritis of left knee [M17.12] Procedure(s) (LRB): TOTAL KNEE JOINT REPLACEMENT (Left) EBL: 25 ML Specimens: * No specimens in log * Complications / Findings: None / Rodney Moore MD documented in this encounter Consult Notes Tata Alberto DO - 02/12/2018 11:20 AM CDTAssociated Order(s): CONSULT HOSPITAL SERVICE Hospitalist Consult: Date of admission: 02/11/2018 Reason for consult: Co-management while patient in hospital HPI: This is a 57 y.o. female admitted to [facility] for left TKA Patein has medical history including DJD who underwent left TKA. POD 1. Asked by primary to co-follow while in the hospital. No issues in the past of bleeding or clots. No past medical history on file. Patient Active Problem List Diagnosis ??? Primary osteoarthritis of left knee Social History Social History ??? Marital status: Spouse name: N/A ??? Number of children: N/A ??? Years of education: N/A Occupational History ??? Not on file. Social History Main Topics ??? Smoking status: Never Smoker ??? Smokeless tobacco: Never Used ??? Alcohol use Not on file ??? Drug use: Not on file ??? Sexual activity: Not on file Other Topics Concern ??? Not on file Social History Narrative Family History Problem Relation Age of Onset ??? Heart Disease Father ??? Cancer Sister ??? Cancer Mother Review of patient's allergies indicates no known allergies. Medication: Current Facility-Administered Medications Medication Dose Route Frequency Provider Last Rate Last Dose ??? acetaminophen (TYLENOL) tablet 650 mg 650 mg Oral QID Rodney Moore MD 650 mg at 02/12/18 0801 ??? aspirin EC enteric coated tablet 162 mg 162 mg Oral Daily Rodney Moore MD 162 mg at 02/12/18 0801 ??? bisacodyl (DULCOLAX) rectal suppository 10 mg 10 mg Rectal DAILY PRN Rodney Moore MD ??? diphenhydrAMINE (BENADRYL) capsule 25-50 mg 25-50 mg Oral Q6H PRN Rodney Moore MD Or ??? diphenhydrAMINE (BENADRYL) injection 25-50 mg 25-50 mg Intravenous Q6H PRN Rodney Moore MD ??? hydroCHLOROthiazide (ORETIC) tablet 25 mg 25 mg Oral Daily Rodney Moore MD ??? HYDROmorphone (DILAUDID) tablet 2-4 mg 2-4 mg Oral Q2H PRN Rodney Moore MD 2 mg at 02/11/18 1930 ??? HYDROmorphone injectable 0.3-0.5 mg 0.3-0.5 mg Intravenous Q1H PRN Rodney Moore MD ??? ketorolac (TORADOL) injection 30 mg 30 mg Intravenous Q6H Rodney Moore MD 30 mg at 02/12/18800 ??? magnesium hydroxide (MILK OF MAGNESIA) suspension 30 mL 30 mL Oral Daily Rodney Moore MD 30 mL at 02/12/18800 ??? metoprolol succinate (TopROL XL) extended release tablet 100 mg 100 mg Oral At Bedtime Rodney Moore MD ??? naloxone (NARCAN) injection 0.08 mg 0.08 mg Intravenous PRN Rodney Moore MD ??? omeprazole (PriLOSEC) delayed release capsule 20 mg 20 mg Oral COND Rodney Moore MD ??? ondansetron (ZOFRAN) injection 4 mg 4 mg Intravenous Q6H PRN Rodney Moore MD Or ??? ondansetron (ZOFRAN-ODT) disintegrating tablet 4 mg 4 mg Oral Q6H PRN Rodney Moore MD ??? senna (SENOKOT) tablet 1 Tablet 1 Tablet Oral 1999 Rodney Moore MD 1 Tablet at 02/11/181930 ??? sodium phosphate (FLEET) enema 1 Enema 1 Enema Rectal PRN Rodney Moore MD ROS: Review of Systems - Negative except see HPI Physical Exam: Vitals: Blood pressure 126/65, pulse 67, temperature 36.6 ??C (97.9 ??F), temperature source Oral, resp. rate 16, height 1.626 m (5' 4), weight 120.2 kg (265 lb), SpO2 93 %. 120.2 kg (265 lb) Estimated body mass index is 45.49 kg/(m^2) as calculated from the following: Height as of this encounter: 1.626 m (5' 4). Weight as of this encounter: 120.2 kg (265 lb). General: Patient alert, in NAD. Upper Extremities: FROM with good strength CV: RRR without murmurs Resp: CBTA Abdomen: Soft, ND, +BS Lower Extremities: Left leg wrapped Rectal: Not examined. Skin: No lesions. Neuro: CN II-XII, motor & sensory function all intact. Psychiatric: A x O x 3. Patient does not appear depressed or anxious. Labs: Lab Results Component Value Date WBC 8.5 02/11/2018 HGB 11.0 (L) 02/12/2018 HCT 41.5 02/11/2018 MCV 90.0 02/11/2018 Lab Results Component Value Date CREATININE 0.59 02/11/2018 BUN 15 02/11/2018 K 3.6 02/11/2018 CHLORIDE 103 02/11/2018 Images: see epic Assessment/Plan: This is a 57 y.o. female admitted to hospital for left TKA Ask by primary team to help manage while in the hospital Patient is doing well and anxious to go home today after PT. Will have PT session this afternoon. Dispo home per ortho No med changes made Continue with home meds (reviewed) Plan discuss with patient & family Tata Alberto DO TT 35 mins > 50% direct CT Ngoc Chavez RN - 02/12/2018 9:44 AM CDTAssociated Order(s): CONSULT CARE INTEGRATION Care Integration: Received Care Integration consult for discharge planning. Reviewed chart including therapy recommendations and attending provider???s progress note. Patient???s goal is to discharge home with Outpt PT.Care Integration will not assess/meet patient face to face because no transition needs are required at this time. If further discharge needs arise, please page the assigned Care Integration treatment team to assess. Ngoc Chavez RN CC 02/12/2018, 9:44 AM documented in this encounter Miscellaneous Notes [facility] Activation Code - [email or web address] JBRYCE - 02/11/2018 4:04 PM CDT Thank you for enrolling in [facility]. Please follow the instructions below to securely access your online medical record. [facility] allows you to send messages to your doctor, view your test results, renewyour prescriptions, schedule appointments, and more. How Do I Sign Up? 1. In your Internet browser, go to [email or web address] 2. Click on the Enter activation code link under the New User? section. You will see the Activate your account! page. 3. Enter your activation code exactly as it appears below. You will not need to use this code after you???ve completed the sign-up process. If you do not sign up before the expiration date, you must request a new code. Activation Code: [email or web address] Expires: 03/13/2018 4:04 PM 4. Enter your last name and date of (mm/dd/yyyy) as indicated, then click Continue. You will be taken to the Let's set up your account page. 5. Create a username. This will be your [facility] login ID and cannot be changed, so think of one thatis secure and easy to remember. 6. Create a password. You can change your password at any time. 7. Enter your e-mail address. You will receive e-mail notification when new information is availablein [facility]. 8. Select your Security Questions and enter your answers. These can be used at a later time if you forget your password. 9. Check the box to accept the terms and conditions. Click Create your account. You can now view your medical record. Additional Information If you have questions, you can call [phone] to talk to our [facility] staff. Remember, [facility] is NOT to be used for urgent needs. For medical emergencies, dial 911. documented in this encounter Plan of Treatment Scheduled Referrals Name Type Priority Associated Diagnoses Order S chedule Physical Therapy Referral Routine S/P total knee arthropla sty, Ordered: 02/11/2018 left documented as of this encounter Procedures Procedure Name Priority Date/Time Associated Diagnosis Comme nts HEMOGLOBIN, BLOOD Specified Time 02/12/2018 7:51 Resul ts for AM CDT this procedure are in the results section. XR KNEE LT 2 VIEWS Routine 02/11/2018 2:26 Result s for PM CDT this procedure are in the results section. TOTAL KNEE JOINT 02/11/2018 8:47 Primary REPLACEMENT AM CDT osteoarthritis of left knee ECG 12 LEAD STAT 02/11/2018 7:35 Results for INPATIENT AM CDT this procedure are in the results section. BEDSIDE GLUCOSE Routine 02/11/2018 7:20 Results f or MONITOR POCT AM CDT this procedure are in the results section. ANION GAP Routine 02/11/2018 7:14 Results for AM CDT this procedure are in the results section. COMPLETE BLOOD STAT 02/11/2018 7:14 Results fo r COUNT-W/DIFF AM CDT this procedure are in the results section. BASIC METABOLIC Routine 02/11/2018 7:14 Results f or PANEL AM CDT this procedure are in the results section. DIFFERENTIAL STAT 02/11/2018 7:14 Results for AM CDT this procedure are in the results section. HGB A1C STAT 02/11/2018 7:14 Results for AM CDT this procedure are in the results section. documented in this encounter Results (ABNORMAL) Hemoglobin in AM POD #1 (02/12/2018 7:51 AM CDT) athologist Signature Hemoglobin 11.0 (L) 11.8 - 15.5 PN SOFT g/dL Specimen Anatomical Collection Method Collection Time Receive d Time (Source) Location / / Volume Laterality 02/12/2018 7:51 AM 8 8:21 CDT AM CDT Narrative PN SOFT - 02/12/2018 8:38 AM CDT Performed at [address] [address] CLIA number [id number] Rodney Moore MD LAB_1 Performing Organization Address City/State/ZIP Code [facility] e Number [address] [address] [phone] XR Knee Lt 2 Views (02/11/2018 2:26 PM CDT) Anatomical Region Laterality Modality Lower Extremity, Knee Digital Radiograph y Specimen (Source) Anatomical Collection Method Collection Time Re ceived Time Location / / Volume Laterality 02/11/2018 2:03 PM CDT Narrative 02/11/2018 2:29 PM CDT COMPARISON: ??X-rays of both knees 09/22/2016 FINDINGS: New postoperative changes of a left knee arthroplasty. Hardware is well seated without evidence for complication. Postoperative gas about the joint. Procedure Note Srinivasan Graham MD - 02/11/2018Fo rmatting of this note might be different from the original. COMPARISON: X-rays of both knees 017 FINDINGS: New postoperative changes of a left knee arthroplasty. Hardware is well seated without evidence for complication. Postoperative gas about the joint. Rodney Moore MD RAD GD ECG 12 Lead Inpatient (02/11/2018 7:35 AM CDT) P athologist Signature Ventricular Rate 69 BPM MUSE [facility] Atrial Rate 69 BPM MUSE [facility] P-R Interval 184 ms [facility]USE [facility] QRS Duration 82 ms M[facility] QT 408 ms MUSE [facility] QTc 437 ms MUSE [facility] P [place] 23 degrees MUSE GHP R [place] 4 degrees MUSE GHP T [place] 10 degrees MUSE [facility] Specimen (Source) Anatomical Collection Method Collection Time Re ceived Time Location / / Volume Laterality 02/11/2018 7:35 AM CDT Narrative MUSE [facility] - 02/11/2018 9:58 AM CDT Sinus rhythm Nonspecific T wave abnormality Abnormal ECG No previous ECGs available Confirmed by CARINE DAVIS ([id number]) on 9:58:19 AM Procedure Note Carine Davis III, MD / Epic, Interna l Processing - 11/03/2019 Sinus rhythm Nonspecific T wave abnormality Abnormal ECG No previous ECGs available Confirmed by CARINE DAVIS ([id number]) on 9:58:19 AM Rodney Moore MD PN ECG ORDERABLES Performing Organization Address City/[facility] Phon e Number MUSE GHP [address] [place] [address] Bedside Glucose Monitor (02/11/2018 7:20 AM CDT) P athologist Signature Bedside Blood 109 mg/dL PN SOFT Glucose Test Comment: Performed at [address] [place] [address] Specimen Anatomical Collection Method Collection Time Receive d Time (Source) Location / / Volume Laterality 02/11/2018 7:20 AM 8 7:25 CDT AM CDT Rodney Moore MD LAB_1 Performing Organization Address City/[facility] Phon e Number PN SOFT [address] [place] [address] Differential (02/11/2018 7:14 AM CDT) athologist Signature Absolute 4.9 1.8 - 8.0 PN SOFT Neutrophils k/cmm Absolute 2.8 1.1 - 4.0 PN SOFT Lymphocytes k/cmm Absolute 0.5 0.2 - 0.8 PN SOFT Monocytes k/cmm Absolute 0.2 0.0 - 0.5 PN SOFT Eosinophils k/cmm Absolute 0.0 0.0 - 0.2 PN SOFT Basophils k/cmm Immature 0.2 0.0 - 0.5 PN SOFT Granulocytes % Specimen Anatomical Collection Method Collection Time Receive d Time (Source) Location / / Volume Laterality 02/11/2018 7:14 AM 8 7:19 CDT AM CDT Narrative PN SOFT - 02/11/2018 7:35 AM CDT Performed at [address] [address] CLIA number [id number] Rodney Moroe MD LAB_1 Performing Organization Address City/[facility] Phon e Number PN SOFT [address] [place] [address] Anion Gap (02/11/2018 7:14 AM CDT) athologist Signature ANION GAP 11 0 - 16 mEq/L PN SOFT Specimen Anatomical Collection Method Collection Time Receive d Time (Source) Location / / Volume Laterality 02/11/2018 7:14 AM 8 7:19 CDT AM CDT Narrative PN SOFT - 02/11/2018 7:36 AM CDT Performed at [address] [address] CLIA number [id number] Rodney Moore MD LAB_1 Performing Organization Address [facility] Phon e Number PN SOFT [address] [place] [address] (ABNORMAL) HGB A1C (02/11/2018 7:14 AM CDT) athologist Signature HGB A1C 5.8 (H) 4.0 - 5.6 % PN SOFT Specimen Anatomical Collection Method Collection Time Receive d Time (Source) Location / / Volume Laterality 02/11/2018 7:14 AM 8 7:19 CDT AM CDT Narrative PN SOFT - 02/11/2018 1:26 PM CDT Performed at [address] [address] CLIA number [id number] Rodney Moore MD LAB_1 Performing Organization Address [facility] Phon e Number PN SOFT [address] [place] [address] Complete Blood Count-W/Diff :only if not drawn within the last 7 days (02/11/2018 7:14 AM CDT) athologist Signature White Blood Cell 8.5 3.8 - 11.0 PN SOFT Count k/cmm Red Blood Cell 4.61 3.70 - PN SOFT Count 5.20 m/cmm Hemoglobin 13.9 11.8 - PN SOFT 15.5 g/dL Hematocrit 41.5 35.0 - PN SOFT 46.0 % Mean Corpuscular 90.0 80.0 - PN SOFT Volume 100.0 fL RDW 13.4 11.0 - PN SOFT 15.0 % Platelet Count 283 140 - 450 PN SOFT k/cmm Specimen Anatomical Collection Method Collection Time Receive d Time (Source) Location / / Volume Laterality 02/11/2018 7:14 AM 8 7:19 CDT AM CDT Narrative PN SOFT - 02/11/2018 7:35 AM CDT Performed at [address] [address] CLIA number [id number] Rodney Moore MD LAB_1 Performing Organization Address [facility] e Number PN SOFT [address] [place] [address] (ABNORMAL) Basic Metabolic Panel: only if not drawn within the last 7 days (02/11/2018 7:14 AM CDT) athologist Signature Creatinine 0.59 0.55 - PN SOFT Serum 1.02 mg/dL Lab Glucose 118 (H) 70 - 100 PN SOFT mg/dL Comment: The stated glucose range is for the fast ing state. Non-fasting glucose range is 70-180 mg/d L CO2 26 22 - 31 mmol/L PN SOFT Chloride 103 98 - 109 mmol/L PN SOFT Potassium 3.6 3.5 - 5.2 mmol/L PN SOFT Sodium 140 136 - 145 mmol/L PN SOFT Blood Urea Nitrogen 15 9 - 26 mg/dL PN SOFT Calcium 10.0 8.4 - 10.4 mg/dL PN SOFT Est GFR Am >60 >60 mL/min/1.73m2 PN SOFT Est GFR Non-Afr Am >60 >60 mL/min/1.73m2 PN SOFT Comment: Normal>60, moderate decrease 30 - 59, se jovan decrease 15 - 29, renal failure <15 mL/min/1.73 m2 NOTE: ??Choose the eGFR result above joanie ropriate for the race of the patient. Specimen Anatomical Collection Method Collection Time Receive d Time (Source) Location / / Volume Laterality 02/11/2018 7:14 AM 8 7:19 CDT AM CDT Narrative PN SOFT - 02/11/2018 7:36 AM CDT Performed at [facility], [facility] [place] [address] CLIA number [id number] Rodney Moore MD LAB_1 Performing Organization Address City/State/ZIP Code Phon e Number PN SOFT [address] [place] [address] documented in this encounter Visit Diagnoses Diagnosis Primary osteoarthritis of left knee - Pr imary Primary localized osteoarthrosis, lower leg S/P total knee arthroplasty, left Primary osteoarthritis of left knee Primary localized osteoarthrosis, lower leg documented in this encounter Administered Medications Inactive Administered Medications - up to 3 most recent administrations Medication Order MAR Action Action Date Dose Rate Site acetaminophen (TYLENOL) tablet Given 02/12/2018 12:37 PM CDT 650 mg 650 mg 650 mg, Oral, QID, First dose on Wed02/11/18 at 1600, Until Discontinued, Post-op Given 02/12/2018 8:01 AM CDT 650 mg Given 02/11/2018 7:30 PM CDT 650 mg aspirin EC enteric coated tablet 162 mg Given 02/12/2018 8:01 AM CDT 162 mg 162 mg, Oral, DAILY, First dose on Wed02/11/18 at 2000, Until Discontinued, Begin day of surgery., Post-op Given 02/11/2018 7:31 PM CDT 162 mg raarbgkeidx-obdwaobipzz-zmtjdpaey Given 02/11/2018 9:47 AM 100 m L Left Knee 0.25%-1:[id number] 40 mL in 0.9% sodium CDT chloride 60 mL (surgery only) ONCE PRN, Starting on Wed02/11/18 at 0947, Intra-op diphenhydrAMINE (BENADRYL) capsule 25-50 mg 25-50 mg, Oral, Q6H PRN, Itching, Starting on 02/11 at 1326, Until 02/12/18 at 1726, If able to take ORAL medications., Po st-op diphenhydrAMINE (BENADRYL) injection 25- 50 mg 25-50 mg, Intravenous, Q6H PRN, Itching, Starting on Wed02/11/18 at 1326, Until 02/12/18 at 1726, Give IV only if unable to take ORALLY ., Post-op hydroCHLOROthiazide (ORETIC) tablet 25 m g 25 mg, Oral, DAILY, First dose (after la st modification) on Wed02/11/18 at 2200, Until Discontinued, Hold if SBP < 120 HYDROmorphone (DILAUDID) tablet 2-4 mg Given 02/12/2018 12:37 PM CDT 2 mg 2-4 mg, Oral, Q2H PRN, Other, Moderate Pain (pain score 5-7), Severe Pain (pain score 8-10), Starting on Wed02/11/18 at 1326, Until 02/12/18 at 1726, Do NOT administer at the same time as IV opioids. May administer 1 hour after IV opioid administration. HOLD if on PROFILE TRIMMER. Use of ORAL opioids is encouraged as patients anticipate discharge. (IV medications will be discontinued 48 hours post-op.) Post-op ? May give for anticipatory pain (i.e. prior to therapies, procedures) regardless of current pain score, Post-op Given 02/11/2018 7:30 PM CDT 2 mg Given 02/11/2018 3:26 PM CDT 2 mg ketorolac (TORADOL) injection 30 mg Given 02/12/2018 2:00 PM CDT 30 mg 30 mg, Intravenous, Q6H, First dose on Wed02/11/18 at 1400, Last dose on Wed02/13/18 at 0800, For 48 hours, Do not give if CrCl <60 or history of GI bleed, Post-op Given 02/12/2018 8:01 AM CDT 30 mg Given 02/12/2018 1:57 AM CDT 30 mg magnesium hydroxide (MILK OF MAGNESIA) Given 02/12/2018 8:01 AM CDT 30 mL suspension 30 mL 30 mL, Oral, DAILY, First dose on 02/12/18 at 0800, Until Discontinued, Hold for loose stools., Post-op ondansetron (ZOFRAN) injection 4 mg 4 mg, Intravenous, Q6H PRN, Nausea, Vomiting, Starting on Wed02/11/18 at 1326, Until 02/12/18 at 1726, Give IV if un able to take oral. Give lorazepam if nausea is not resolved in 15 minutes, Post-op ondansetron (ZOFRAN-ODT) disintegrating tablet 4 mg 4 mg, Oral, Q6H PRN, Nausea, Vomiting, S tarting on Wed02/11/18 at 1326, Until 02/12/18 at 1726, Give lorazepam if nause a is not resolved in 15 minutes, Post-op povidone-iodine 10% in sodium Given 02/11/2018 9:47 AM CDT 500 m L Left Knee chloride 500 mL sterile irrigation (surgery only) ONCE PRN, Starting on Wed02/11/18 at 0947, Intra-op senna (SENOKOT) tablet 1 Tablet Given 02/11/2018 7:31 PM CDT 1 Tablet 1 Tablet, Oral, DAILY - 1999, First dose on Wed02/11/18 at 2000, Until Discontinued, Give every day while on opioids (stimulant) starting day of surgery. Hold for loose stools., Post-op sodium chloride for irrigation 0.9 Given 02/11/2018 9:47 AM CDT 1,000 mL Left Knee % ONCE PRN, Starting on Wed02/11/18 at 0947, Intra-op vancomycin (VANCOCIN) powder for bone Given 02/11/2018 9:47 AM C DT 500 mg Left Knee cement ONCE PRN, Starting on Wed02/11/18 at 0947, Intra-op documented in this encounter Active and Recently Administered Medications Times are shown in CDT. Scheduled Medication Order 02/10/2018 02/11/2018 02/12/2018 acetaminophen (TYLENOL) tablet 1,000 mg (COMPLETED) 814 (Given - Provider: Shy Neil RN) 1,000 mg, Oral, ONCE, Wed02/11/18 at 0730, For 1 dose, Give in P reop., Pre-op acetaminophen (TYLENOL) tablet 650 mg 16 25 (Given - Provider: Collins Adam RN)1930 (Given - Provider: Collins Adam RN) 0801 (Given - Provider: Martha Christianson, NIKHIL)1237 (Given - Provider: Martha Christianson, NIKHIL) 650 mg, Oral, QID, First dose on Wed02/11/18 at 1600, Post-op aspirin EC enteric coated tablet 162 mg 193 (Given - Provider: Collins Adam RN) 08 (Given - Provider: Martha Christianson, NIKHIL) 162 mg, Oral, DAILY, First dose on Wed at 2000, Begin day of surgery., Post-op ceFAZolin (aka ANCEF) 2 g in dextrose 100 ml IVPB (COMPLETED ) 1703 (Started - Provider: Collins Adam RN)1733 (Infused - Provider: Collins Adam RN) 0157 (Started - Provider: Fallon Daniels, NIKHIL)0227 (Infused - Provider: Lauren Hung, NIKHIL) 2 g, Intravenous, Administer over 30 Min utes, Q8H (NON-STND), First dose on Wed02/11/18 at 1700, For 2 doses, Post-op ceFAZolin (ANCEF) 3 g in sodium chloride 0.9 % 100 mL IVPB ( COMPLETED) 09 (Started - Provider: Ana Cheung APRN, [employer]) 3 g, Intravenous, Administer over 30 Min utes, ONCE, Wed02/11/18 at 0900, For 1 dose, Infuse within 60 minutes prior to incision; Re-dose 1 gram IV every 4 hours after initial dose until incision closed., Pre-op celecoxib (CeleBREX) capsule 200 mg (COMPLETED) 814 (Given - Provider: Shy Neil RN) 200 mg, Oral, ONCE, Wed02/11/18 at 0730, For 1 dose, Give in Preop. DO NOT give if history of GI bleed; AK or sulfa allergy., Pre-op dexamethasone (DECADRON) injection 8 mg (COMPLETED) 929 (Given - Provider: Ana Cheung APRN, [employer]) 8 mg, Intravenous, ONCE, Wed02/11/18 at 0730, For 1 dose, To be given by D[employer] in OR prior to induction. DO NOT give if patient is diabetic., Pre-op hydroCHLOROthiazide (ORETIC) tablet 25 mg 2212 (Not Given - Provider: Collins Adam RN - Reason: Order parameters not met) 25 mg, Oral, DAILY, First dose on Wed02/11/18 at 2200, Hold if S BP < 120 ketorolac (TORADOL) injection 30 mg 1425 (Given - Provider: Hyacinth Robles RN)1930 (Given - Provider: Collins Adam RN) 0157 (Given - Provider: Fallon Daniels RN)0801 (Given - Provider: Martha Christianson, NIKHIL)1400 (Given - Provider: Martha Christianson RN) 30 mg, Intravenous, Q6H, First dose on 02/11/18 at 1400, For 48 hours, Do not give if CrCl <60 or history of GI bleed, Post-op magnesium hydroxide (MILK OF MAGNESIA) suspension 30 mL 08 (Given - Provider: Martha Christianson, NIKHIL) 30 mL, Oral, DAILY, First dose on Wed at 0800, Hold for loose stools., Post-op metoprolol succinate (TopROL XL) extended release tablet 100 mg 2213 (Not Given - Provider: Collins Adam RN - Reason: Order parameters not met) 100 mg, Oral, HS, First dose on 02/11 at 2200, Hold if SBP < 120 Tablet should be swallowed whole ondansetron (ZOFRAN) injection 4 mg (COMPLETED) 814 (Given - Provider: Shy Neil RN) 4 mg, Intravenous, ONCE, Wed02/11/18 at 0730, For 1 dose, Give in Preop., Pre-op oxyCODONE (OXYCONTIN) controlled release tablet 10 mg (COMPL ETED) 0815 (Given - Provider: Shy Neil, RN) 10 mg, Oral, ONCE, Wed02/11/18 at 0730, For 1 dose, Give in Preo p., Pre-op senna (SENOKOT) tablet 1 Tablet 1930 (Given - Pr ovider: Collins Adam, NIKHIL) 1 Tablet, Oral, DAILY - 1999, First dose on Wed02/11/18 at 2000, Give every day while on opioids (stimulant) starting day of surgery. Hold for loose stools., Post-op tranexamic acid (CYKLOKAPRON) 1,000 mg i n sodium chloride 0.9 % 50 mL IVPB (COMPLETED) 0925 (Started - Provider: Anastasiya Cheung APRN, ANA)1029 (Bolus - Provider: María Montoya APRN, ANA) 1,000 mg, Intravenous, ONCE, Wed02/11/18 at 0730, For 1 dose, Maximum administration rate is 100 mg/minute. To be given in OR by [facility] prior to incision. Re-dose 1000 mg IV during wound closure., Pre-op Continuous Medication Order 02/10/2018 02/11/2018 02/12/2018 lactated ringers infusion (CANCELED) 071 5 (Started - Provider: Shy Neil RN)0958 (Started - Provider: Ana Cheung APRN, ANA)1030 (Anesthesia Fluid - Provider: María Montoya APRN, ANA)1055 (Anesthesia Fluid - Provider: María Montoya APRN, ANA) 25 mL/hr, Intravenous, at 25 mL/hr, CONT INUOUS, Starting Wed02/11/18 at 0730, Administer on all preop surgery patients, ages 12 and older, unless specified differently in the Protocol for Preop Initiation of IV fluids Order Set., Pre-op 1103 (Continue Current Bag - Provider: Leo Estrada RN) sodium chloride 0.9% infusion (CANCELED) 1130 (Started - Provider: Melody Estrada RN) 0157 (Started - Provider: Fallon Daniels RN) Intravenous, at 75 mL/hr, CONTINUOUS, St arting Wed02/11/18 at 1130, Start after completion of bag currently infusing, Post-op PRN Medication Order 02/10/2018 02/11/2018 02/12/2018 bisacodyl (DULCOLAX) rectal suppository 10 mg 10 mg, Rectal, DAILY PRN, Other, Moderat e Constipation, Starting Wed02/11/18 at 1326, Post-op zdcumggxlhm-kaklpplnngu-ndlobrrqp 0.25%- [id number] 40 mL in 0.9% sodium chloride 60 mL (surgery only) (CANCELED) 0947 (Given - Provider: Rodney Moore MD) ONCE PRN, Starting Wed02/11/18 at 0947, Intra-op diphenhydrAMINE (BENADRYL) capsule 25-50 mg(Linked Group 1) 25-50 mg, Oral, Q6H PRN, Itching, Starti ng Wed02/11/18 at 1326, If able to take ORAL medications., Post-op diphenhydrAMINE (BENADRYL) injection 25-50 mg(Linked Group 1) 25-50 mg, Intravenous, Q6H PRN, Itching, Starting Wed02/11/18 at 1326, Give IV only if unable to take ORALLY., Post-op HYDROmorphone (DILAUDID) tablet 2-4 mg 1 526 (Given - Provider: Hyacinth Robles RN - Comment: given for anticipatory pain)1930 (Given - Provider: Collins Adam RN) 1237 (Given - Provider: Martha Christianson RN) 2-4 mg, Oral, Q2H PRN, Other, Moderate P ain (pain score 5-7), Severe Pain (pain score 8-10), Starting Wed02/11/18 at 1326, Do NOT administer at the same time as IV opioids. May administer 1 hour after I V opioid administration. HOLD if on PROFILE TRIMMER. Use of ORAL opioids is encouraged as patients anticipate discharge. (IV medications will be discontinued 48 hours post-op.) Post-op ? May give for anticipatory pain (i.e. prior to therapies, procedure s) regardless of current pain score, Post-op HYDROmorphone injectable 0.2-0.4 mg (CANCELED) 1139 (Given - Provider: Melody Estrada RN) 0.2-0.4 mg, Intravenous, Q10MIN PRN, Oth er, : Moderate to Severe Pain (pain score 5 and above) in the immediate postop period when longer acting agent is desired., Starting Wed02/11/18 at 0840, Maximum cumulative dose is 2 mg. For patients wi th a regional, spinal, or local anesthetic, may give for anticipated pain as the anesthetic wears off., PACU/Recovery HYDROmorphone injectable 0.3-0.5 mg 0.3-0.5 mg, Intravenous, Q1H PRN, Other, Severe Pain (pain score 8-10) if patient is unable to take ORAL or for pain score increasing by 3 in 30 minutes., Starting Wed02/11/18 at 1326, For 48 hours, May administer 1 hour after ORAL opioid adm inistration if given for pain score escalation. Do NOT administer at the same time as ORAL opioids. HOLD if on PROFILE TRIMMER., Post-op naloxone (NARCAN) injection 0.08 mg 0.08 mg, Intravenous, PRN, Other, Opioid Reversal, Starting Wed02/11/18 at 1326, Dilute 0.4mg/1mL with 9mL NS, then 0.08mg = 2mL. Give 0.08mg/2mL every 3 minutes as needed. Maximum total dose = 2mg., Post-op omeprazole (PriLOSEC) delayed release capsule 20 mg 20 mg, Oral, CONDITIONAL, Other, For GI symptoms with aspirin, Starting Wed02/11/18 at 1326, If patient experiences GI symptoms with aspirin, Notify Pharmacy to reenter this order with a frequency of Daily, Post-op ondansetron (ZOFRAN) injection 4 mg(Linked Group 2) 4 mg, Intravenous, Q6H PRN, Nausea, Vomi ting, Starting Wed02/11/18 at 1326, Give IV if unable to take oral. Give lorazepam if nausea is not resolved in 15 minutes, Post-op ondansetron (ZOFRAN-ODT) disintegrating tablet 4 mg(Linked Group 2) 4 mg, Oral, Q6H PRN, Nausea, Vomiting, S tarting Wed02/11/18 at 1326, Give lorazepam if nausea is not resolved in 15 minutes, Post-op povidone-iodine 10% in sodium chloride 5 00 mL sterile irrigation (surgery only) (CANCELED) 1168 (Given - Provider: Dwight Quiles) ONCE PRN, Starting Wed02/11/18 at 0947, Intra-op sodium chloride for irrigation 0.9 % (CANCELED) 946 (Given - Provider: Rodney Moore MD) ONCE PRN, Starting Wed02/11/18 at 0947, Intra-op sodium phosphate (FLEET) enema 1 Enema 1 Enema, Rectal, PRN, Other, Severe Cons tipation, Starting Wed02/11/18 at 1326, Post-op vancomycin (VANCOCIN) powder for bone cement (CANCELED) 946 (Given - Provider: Rodney Moore MD) ONCE PRN, Starting Wed02/11/18 at 0947, Intra-op Linked Groups Order Group 1: diphenhydrAMINE (BENADRYL) capsule 25-50 mgJump to med 25-50 mg, Oral, Q6H PRN, Itching, Starti ng Wed02/11/18 at 1326
If able to take ORAL medications.
Post-op Or diphenhydrAMINE (BENADRYL) injection 25-50 mgJump to med 25-50 mg, Intravenous, Q6H PRN, Itching, Starting 02/11/18 at 1326
Give IV only if unable to take ORALLY.
Post-op Group 2: ondansetron (ZOFRAN) injection 4 mgJump to med 4 mg, Intravenous, Q6H PRN, Nausea, Vomi ting, Starting 02/11/18 at 1326
Give IV if unable to take oral. Give lorazepam if nausea is not resolved in 15 minutes
Post-op Or ondansetron (ZOFRAN-ODT) disintegrating tablet 4 mgJump to med 4 mg, Oral, Q6H PRN, Nausea, Vomiting, S tarting 02/11/18 at 1326
Give lorazepam if nausea is not resolved in 15 minutes
Post-op documented in this encounter Care Teams Network Account Manager Relationship Specialty Start Date End Date Adarsh Salazar MD PCP - General Urgent Care 02/11/18 [address] [place] [address] documented as of this encounter
--- OUTSIDE RECORDS SUMMARY | 2022-06-09 15:04 | XMS_ITS | Encounter Summary ---
:1960 Author Organization [facility] Address [address] [place] [address] Care Team Providers Name Role Phone Adarsh Salazar MD Primary Care Provider Reason for Visit Reason Onset Date Comments Refill 02/25/2018 Oxycodone Encounter Details Date Type Department Care Team Description 02/25/2018 Refill [facility] Rodney Gloria MD Refill (Oxycodone) [address] [facility] [address] [place] [address] [place] [address] [place] [address] [phone] (Wo rk) Social History Tobacco Use Types Packs/Day Years Used Date Smoking Tobacco: Never Smokeless Tobacco: Never Sex Assigned at Date Recorded Not on file documented as of this encounter Nursing Notes Holli Crowley RN - 02/25/2018 1:41 PM CDT Refill approved; Pt informed. Holli Crowley RN - 02/25/2018 12:28 PM CDT Pt called to report the [place] 5-325mg, 1# every 6 hours, 30#, she'd received for refill 02/24/18 was not adequately managing her post-op pain. Pt had been given Dilaudid post-operatively, 56#. S/P left TKA 02/11/18. Pt not out of [place] but reported she cannot sleep at night related to pain; she's in pain throughoutday as well per her report. Oxycodone pended, please approve or advise. documented in this encounter Plan of Treatment Not on filedocumented as of this encounter Visit Diagnoses Not on filedocumented in this encounter Care Teams Slot Floor Attendant Relationship Specialty Start Date End Date Adarsh Salazar MD PCP - General Urgent Care 02/11/18 [address] [place] [address] documented as of this encounter
--- OUTSIDE RECORDS SUMMARY | 2022-06-09 15:04 | XMS_ITS | Encounter Summary ---
:1960 Author Organization [email or web address] Address [address] [address] Care Team Providers Name Role Phone Unavailable Primary Care Provider Unavailable Reason for Referral (Routine) - Incomplete Specialty Diagnoses / Procedures Referred By Contact Refer red To Contact Diagnoses Primary osteoarthritis of left knee Rodney Moore MD Procedures Case Request OR - Orthopedic Surgery: TOTAL KNEE JOINT REPLACEMENT [address] [facility] [place], [place] [address] Referral ID Status Reason Start Date Expiration Date Visits V isits Requested Authorized [id number] Incomplete 12/20/2017 03/21/2019 1 1 Reason for Visit Reason Comments Knee Pain or Injury Left Encounter Details Date Type Department Care Team Description 12/20/2017 Office Visit [facility] Rodney Moore MD Postop check (Primary Dx); [facility] Primary osteoarthritis of left knee [address] [place] [address] [phone] Social History Tobacco Use Types Packs/Day Years Used Date Smoking Tobacco: Never Smokeless Tobacco: Never Sex Assigned at Date Recorded Not on file documented as of this encounter Progress Notes Rodney Moore MD - 12/20/2017 12:00 PM CDT NAME: SERAFIN PIEDRA MR#: [id number] CSN: [id number] AUTHENTICATING CLINICIAN: Rodney Moore MD CONFIRM #: [id number] LOC: 711 CLINIC PROGRESS NOTE DATE OF VISIT: 12/20/2017 : 1960 SUBJECTIVE: This 57-year-old woman is seen for evaluation of left knee pain. The onset was about 1-1/2 to 2 years ago, unrelated to any specific injury or activity. She has pain localized primarily to the medial side of the left knee. Her symptoms are aggravated by standing and walking, climbing and descending stairs. Pain is alleviated by rest; however, nothing seems to help much of her pain. She has been treated in the past with pjdm-vnf-cpkluvp analgesics and viscosupplementation injections. Past medical history, medications, and allergies are reviewed in Epic. SOCIAL HISTORY: She works in [employer] for [employer]. She is and is a nonsmoker. REVIEW OF SYSTEMS: Positive for a history of hypertension and for gastrointestinal symptoms of heartburn. OBJECTIVE: Height 163 cm, weight 121 kg, calculated BMI 45.83. The patient ambulates with an antalgic gait favoring the left lower extremity. On inspection of the lower extremities, there is a mild varus alignment bilaterally. Skin overlying the knee is clear without rash or erythema. On examination of the left knee, there is a small effusion. Range of motion is from 0-125 degrees flexion. Medial and lateral collateral ligaments are stable. Zehra is grade 1. Posterior drawer is negative. There is marked tenderness along the medial joint line. Sensation, motor function, and circulation are intact in the distal lower extremity. IMAGING STUDIES: We reviewed outside x-rays dated September 22, 2016. There is severe narrowing of the medial joint space on the left knee, bone on bone. ASSESSMENT: Osteoarthritis, left knee. PLAN: We discussed treatment options, and she elected to proceed with left total knee replacement. Detailsof surgery, risks and benefits were discussed with her today. She will need to be seen by Primary Care for her preoperative cardiovascular risk assessment. MKT:MEDQ C: R:12/27/17 16:31 CONFIRM#:[id number] documented in this encounter Plan of Treatment Not on filedocumented as of this encounter Visit Diagnoses Diagnosis Postop check - Primary Follow-up examination, following unspeci fied surgery Primary osteoarthritis of left knee Primary localized osteoarthrosis, lower leg documented in this encounter
--- OUTSIDE RECORDS SUMMARY | 2022-06-09 15:04 | XMS_ITS | Encounter Summary ---
:1960 Author Organization [facility] Address [address] [place] [address] Care Team Providers Name Role Phone Adarsh Salazar MD Primary Care Provider Reason for Referral Therapies (Routine) - Closed Specialty Diagnoses / Procedures Referred By Contact Refer red To Contact Diagnoses Status post total left knee replacement Rodney Moore MD [address] [facility] [place] [place] [address] Referral ID Status Reason Start Date Expiration Date Visits Requ ested Visits Authorized [id number] Closed 2018 04/18/2018 1 1 Scheduling Instructions If scheduling assistance is needed, cha mahan inquire with the medical office staff upon exiting your appointment or contact the ordering clinic for recommended locations. This recommended service/s may not be co armaan by your insurance coverage. To find out your specific benefit coverage, please c all the number on your insurance card. Reason for Visit Reason Comments Knee Pain or Injury left knee Encounter Details Date Type Department Care Team Description 2018 Notes/Orders [facility] Rodney Moore MD Status post total [facility] [address] [facility] left knee replacement [address] [place], [place] (Primary Dx) [place], [place] [phone] (Wo rk) Social History Tobacco Use Types Packs/Day Years Used Date Smoking Tobacco: Never Smokeless Tobacco: Never Sex Assigned at Date Recorded Not on file documented as of this encounter Plan of Treatment Scheduled Referrals Name Type Priority Associated Diagnoses Order S lindsey Physical Therapy Referral Routine Status post total left k nee Ordered: 2018 replacement documented as of this encounter Visit Diagnoses Diagnosis Status post total left knee replacement - Primary documented in this encounter Care Teams Wood Heel Attacher Relationship Specialty Start Date End Date Adarsh Salazar MD PCP - General Urgent Care 02/11/18 [address] [place] [address] documented as of this encounter
--- OUTSIDE RECORDS SUMMARY | 2022-06-09 15:04 | XMS_ITS | Encounter Summary ---
:1960 Author Organization [facility] Address [address], [place] [address] Care Team Providers Name Role Phone Adarsh Salazar MD Primary Care Provider Encounter Details Date Type Department Care Team Description 02/11/2018 Notes/Orders [facility] Rodney Gloria MD [address] [facility] [address] [place] [address] [place], [place] [address] [place] [address] [phone] (Wo rk) Social History Tobacco Use Types Packs/Day Years Used Date Smoking Tobacco: Never Smokeless Tobacco: Never Sex Assigned at Date Recorded Not on file documented as of this encounter Plan of Treatment Not on filedocumented as of this encounter Visit Diagnoses Not on filedocumented in this encounter Care Teams Medication Aid Relationship Specialty Start Date End Date Adarsh Salazar MD PCP - General Urgent Care 02/11/18 [address] [place] [address] documented as of this encounter
--- OUTSIDE RECORDS SUMMARY | 2022-06-09 15:04 | XMS_ITS | Encounter Summary ---
:1960 Author Organization [facility] Address [address] [address] Care Team Providers Name Role Phone Needs Pcp, Assignment Primary Care Provider Reason for Visit Reason Comments Patient Education Pre-op 1:1 nurse education; pre-op 1:1 nurse education Encounter Details Date Type Department Care Team Description 02/01/2018 [facility] Nurse, [id number] Ortho Screening examination [facility] Orthopedics for infectious disease [address] [place] [address] Social History Tobacco Use Types Packs/Day Years Used Date Smoking Tobacco: Never Smokeless Tobacco: Never Sex Assigned at Date Recorded Not on file documented as of this encounter Patient Instructions Patient InstructionsJada Engle RN - 02/01/2018 2:00 PM CDT Thank you for coming to your total joint education visit today! It was a pleasure to meet you. We want to make sure that if you need further information or clarification that you have the tools you need. If you have any further questions or concerns after your education visit and prior to surgery pleasereach out to me at the number provided. If you are needing a refill on medication prescribed by your orthopedic surgeon please contact your pharmacy to send a refill request or call your surgeon's nurse triage line. If you have any questions or concerns regarding completion of disability paperwork please contact your surgeon's office. Any questions or concerns that you have after your surgery please contact your surgeon's office directly. [facility] Orthopedic Contact Numbers Appointment [phone] Nurse Triage: [phone] Medical Records request: [phone] (Option 4) After-Hours Nurse Line - [facility] for medical advice (Weekdays, 5p.m. to 8:30 a.m.; Weekends and Holidays - 24 hours): [phone] documented in this encounter Progress Notes Jada Engle RN - 02/01/2018 2:00 PM CDT Celeste Eid a 57 y.o. female was seen 02/01/2018 for a nurse pre-surgery planning and total joint educational visit. The patient is scheduled for a left total knee with Dr. Rodney Moore on February 11, 2018. Patient attended education session alone. Patient does not need an assistive device to help with ambulation. If patient currently needs an assistive device, device being used is a NA. Barriers to Care: None Patient does want surgeon to be aware that pt is a heavy bleeder with surgery and has had hx of veryheavy periods. Falls Risk? Yes, history of dizziness/vertigo. Preoperative Physical: Preoperative physical is completed yesterday. Venous Thromboembolism Risk Assessment Prior to Total Joint Answers below based on completion of venous thromboembolism prophylaxis risk assessment checklist completed by the patient. Date Completed: 02/01/18 1. Current long-term anticoagulation other than Aspirin: No Medication: 2. Hx of DVT or PE: No Location: 3. Family hx of DVT or PE: No Whom: Location: 4. Positive for any of the following -- Lupus Anticoagulant, Factor VII Excess, Anti-Cardiolipin Antibodies, Anti-Phospholipid Antibodies, Anti-Thrombin III Deficiency, Protein C Deficiency, Factor V Leiden, Prothrombin (Factor II) Mutation, Protein S Deficiency : No 5. Hemophilia: No, but pt is a heavy bleeder with surgery. 6. Treatment for cancer or myeloproliferative disorder within the last year: No Latex, Anesthesia, Metals Allergies or Intolerances: The patient does not report an allergy to latex. Reaction: NA The patient does not report an allergy to history of adverse reaction to anesthesia. Reaction: No allergy, but pt does wake up from general anesthesia jumping up out of bed almost like being surprisedor in shock. The patient does not report an allergy to history of adverse reaction to metals or jewelry. Reaction: NA Patient states she is allergic to closure made out of cat guts and dyes. Pain Medication Review: Upon reviewing current use of pain medication prior to surgery the patient indicates that she does not currently take opioid medication for pain. Medication being taken is Mobic for pain in the left knee. The patient has not been seen at a pain clinic. Should a Palliative Care Consult be considered upon admission: No Allergies or intolerances to specific pain medications: yes, patient is very sensitive to pain medications and would prefer to start out very small, maybe a half tab to start. Pt states she has had 3 back surgeries and went home just taking Tylenol. Pt states 1 tab of Tylenol will knock pt out all night. Pt would prefer do avoid narcotics if possible. Discussed discontinuing all supplements and fish oil at this time as well as discontinuing use of all NSAIDS seven days prior to surgery. Social Screening Dietary restrictions or food allergies: no Tobacco use: No -- Packs per day 0 Caffeine use: Yes -- Cups per day 2 Alcohol use: Yes -- Monthly 1-2 drinks Jain or cultural practices hospital staff to be aware of: no Primary care-mover for a family member or friend: no Patient was instructed to reduce intake of tobacco, caffeine, and alcohol products prior to surgery. Living Arrangements: Type of home: Single level home Lives with: Spouse Stairs to enter home: 6 with a rail Stairs inside home: 0 [place] [employer] Cloths and Skin Conditions: Instructions for use of [place] [employer] Cloths provided and reviewed with the patient. Also reviewed with the patient that the skin should remain free of any sores or rashes prior to surgery. Instructed to call if any changes in skin integrity prior to surgery. Hospital Stay The patient was reminded that while in the hospital there will be several nurses in monitoring vitalsigns as they recover the first day. The patient was instructed to always use the call light when needing to get out of bed while in thehospital. Reasoning for these actions were provided and the patient verbalized understanding. Do you have a history of falls? No Do you have a history of dizziness? Yes Hospital Discharge Planning: The patient was provided with discharge tools to assist in planning recovery following a 1 day hospital stay. Preferred location of discharge would be to home and do outpt PT at an external PT locationnear pt's home. Pt will call to make appts. Pt's goal to get go home POD #1 unless there is a medical reason to keep pt longer. The patient understands that the insurance company should be contacted toverify coverage for any possible scenario that may occur upon discharge. Manager Sas: The patient has identified a personal development educator to assist with care after hospital discharge. This person will be available to help at home for the first several following surgery. Manager Sas Name: Omari Eid-taking 5 days off work Relationship to the patient: Post-op Pain Medication Refills Reviewed with the patient to contact surgeon's office for medication refill rquests and to plan ahead for weekends. Workability and Handicapped Parking: Patient instructed to send work or disability forms to surgeons at least 3-4 weeks prior to surgery. Disability parking permit form given to the patient: Yes If no patient has already received this form prior to appointment. Dental Procedures: Recommended to complete any necessary dental care prior to surgery and to wait 6 months after joint replacement surgery for any routine care. Also discussed if surgeon recommends, then patient may need to take antibiotics prior to dental appointments after total joint surgery. MRSA MSSA Screening: Education was provided today regarding screening for MRSA and MSSA prior to surgery. Subjective: Celeste Eid has arrived for MRSA/MSSA nasal swab prior to total joint surgery. Procedure: Nasal swab performed to bilateral nares and culture sent to lab. Patient tolerated procedure well. Plan: Patient will receive follow up call from clinic with results. Pt's preferred pharmacy is the [facility] in [place] on [facility]. Patient gave permission to leave a voice mail msg with results if unavailable. All questions were answered today and the patient verbalized understanding. Instructed patient to review Hip and Knee Replacement Care Guide that was used today throughout the visit and materials givenat the time of scheduling surgery. The patient was provided with the phone number to call back with any additional questions or concerns. Nurse visit completed by Jada Engle RN. documented in this encounter Plan of Treatment Not on filedocumented as of this encounter Procedures Procedure Name Priority Date/Time Associated Diagnosis Comme nts PREOP STAPH AUREUS Routine 02/01/2018 3:11 PM Screening Res ults for this CULTURE CDT examination for procedure ar e in infectious disease the resul ts section. documented in this encounter Results (ABNORMAL) MRSA MSSA Preop Culture - Staph Aureus Culture (02/01/2018 3:11 PM CDT) Component Value Ref Test Analysis Performed At [facility] Method Time Signature Source Nares PN SOFT Site PN SOFT Preop Staph Staphylococcus aureus 02/03/2018 PN SO FT Aureus This is considered a significant result. Clinical 9:25 AM CDT Culture correlation is indicated. (A) Preop Staph Staphylococcus 02/03/2018 PN SOFT Aureus aureus (A) 9:25 AM CDT Culture Specimen (Source) Anatomical Collection Method Collection Time Re ceived Time Location / / Volume Laterality Nares: 02/01/2018 3:11 PM CDT Narrative PN SOFT - 02/03/2018 9:25 AM CDT Performed at [facility] y, [address] [place] [address], [place] [address], CLIA Number [id number] Organism Antibiotic Method Susceptibility Staphylococcus aureus Clindamycin JOHNY SENSITIVITY 0.25 mcg/m L: Sensitive Staphylococcus aureus Erythromycin JOHNY SENSITIVITY <=0.25 mcg /mL: Sensitive Comment: Susceptible implies suscepti bility to Azithromycin, Clarithromycin and Dirithrom ycin Staphylococcus aureus Linezolid JOHNY SENSITIVITY 2 mcg/mL: Sensitive Staphylococcus aureus Oxacillin JOHNY SENSITIVITY <=0.25 mcg /mL: Sensitive Comment: Predicts activity of Methicillin,Nafcillin,Cloxac illin,Dicloxacillin,cephalospor ins,beta-lactam inhibitor co mbinations and Carbapenems. Staphylococcus aureus Tetracycline JOHNY SENSITIVITY <=1 mcg/mL : Sensitive Comment: Susceptible implies suscepti bility to Doxycycline and Minocycline Staphylococcus aureus Trimethoprim/Sulfamethoxazole JOHNY SENSITIV ITY <=10 mcg/mL: Sensitive Staphylococcus aureus Vancomycin JOHNY SENSITIVITY <=0.5 mcg/ mL: Sensitive Rodney Moore MD LAB_1 Performing Organization Address City/State/ZIP Code Phon e Number PN SOFT [address] [place] [address] documented in this encounter Visit Diagnoses Diagnosis Screening examination for infectious dis ease Screening examination for unspecified in fectious disease documented in this encounter Care Teams Waste Management Engineer Relationship Specialty Start Date End Date Needs Pcp, Assignment PCP - General 02/03/18 02/10/18 [place] [address] documented as of this encounter
--- OUTSIDE RECORDS SUMMARY | 2022-06-09 15:04 | XMS_ITS | Encounter Summary ---
:1960 Author Organization [facility] Address [address] [place] [address] Care Team Providers Name Role Phone Adarsh Salazar MD Primary Care Provider Reason for Visit Reason Comments Post-Op Check Encounter Details Date Type Department Care Team Description 02/23/2018 Office Visit [facility] Rodney Rodriguez OA Status post total CENTER [address] [facility] left knee replacement [address] [facility] [address] (Primary Dx) [place], [place] [address] [place], [place] [phone] [address] Social History Tobacco Use Types Packs/Day Years Used Date Smoking Tobacco: Never Smokeless Tobacco: Never Sex Assigned at Date Recorded Not on file documented as of this encounter Progress Notes Rodney Rodriguez OA - 02/23/2018 3:30 PM CDT Post op Rodney Rodriguez OA - 02/23/2018 12:00 PM CDT NAME: SERAFIN EID MR#: [id number] CSN: [id number] AUTHENTICATING CLINICIAN: ZULEYMA Palafox CONFIRM #: [id number] LOC: 211 CLINIC PROGRESS NOTE DATE OF VISIT: 02/23/2018 : 1960 The patient is in our clinic today for a postop appointment following her left total knee arthroplasty. This was done on 02/11/2018, by Dr. Rodney Moore. OBJECTIVE: The patient's postop dressing was removed. She was also wearing Tubigrip at today's visit. The skin incision looked to be in fair condition; some redness, some swelling. Skin renetta were removed. Steri-Strips were placed over the incision site. PLAN: The patient states she is doing quite well. She is using a walker for ambulation. She is going to physical therapy twice a week. She can flex to approximately 85 degrees at this time. She is experiencing pain from [id number], more so than she expected. She does have an appointment to see Dr. Moore in approximately 3 weeks. If she does have any problems before her next visit, she will call our clinic. MRS:MEDQ C: CONFIRM #: [id number] documented in this encounter Plan of Treatment Not on filedocumented as of this encounter Visit Diagnoses Diagnosis Status post total left knee replacement - Primary documented in this encounter Care Teams Money Room Supervisor Relationship Specialty Start Date End Date Adarsh Salazar MD PCP - General Urgent Care 02/11/18 [address] [place] [address] documented as of this encounter
--- OUTSIDE RECORDS SUMMARY | 2022-06-09 15:04 | XMS_ITS | Encounter Summary ---
:1960 Author Organization [facility] Address [address] [place] [address] Care Team Providers Name Role Phone Adarsh Salazar MD Primary Care Provider Reason for Visit Reason Onset Date Comments Refill 02/23/2018 Encounter Details Date Type Department Care Team Description 02/23/2018 Refill [facility] Rodney Gloria MD Refill [address] [facility] [address] [facility] [place], [place] [address] [place] [address] [phone] (Wo rk) Social History Tobacco Use Types Packs/Day Years Used Date Smoking Tobacco: Never Smokeless Tobacco: Never Sex Assigned at Date Recorded Not on file documented as of this encounter Nursing Notes Nichol Dobson RN - 02/23/2018 4:52 PM CDT 02/11/18: Procedure: Primary Left Knee Arthroplasty: Total Femoral, Tibial, Patella the patient called and just left her appointment and forgot to ask for pain medication. Needs it as she is out. Good CMS. No problems. Taking every 4-6 hours. Educated patient to take only as needed for pain every 6-8 hours. States understanding. Will use ice, tylenol and ibuprofen. Please approve or advise. Requested Prescriptions Pending Prescriptions Disp Refills ??? HYDROcodone-acetaminophen (NORCO) 5-325 MG tablet 30 Tablet 0 Sig: Take 1 Tablet by mouth every 6 hours as needed. For post op pain. documented in this encounter Plan of Treatment Not on filedocumented as of this encounter Visit Diagnoses Not on filedocumented in this encounter Care Teams Surveillance Investigator Relationship Specialty Start Date End Date Adarsh Salazar MD PCP - General Urgent Care 02/11/18 [address] [place] [address] documented as of this encounter
--- OUTSIDE RECORDS SUMMARY | 2022-06-09 15:04 | XMS_ITS | Encounter Summary ---
:1960 Author Organization [facility] Address [address], [place] [address] Care Team Providers Name Role Phone Adarsh Salazar MD Primary Care Provider Reason for Referral Therapies (Routine) - Closed Specialty Diagnoses / Procedures Referred By Contact Refer red To Contact Diagnoses S/P total knee arthroplasty, left Colleen Cueto RN, INTERVENTION SPECIALIST COMPOSITION WORKER [address] [place], [place] [address] Referral ID Status Reason Start Date Expiration Date Visits Requ ested Visits Authorized [id number] Closed 02/11/2018 04/12/2018 1 1 Scheduling Instructions Your provider has recommended an appoint ment with [facility]. You may call [phone] to schedule your a ppointment. If you do not schedule an appointment within the next 1 to 3 in ess days, we will call you to help arrange your appointment. We suggest you call [facility] [employer] about your coverage and benefits for this appointme nt. (Routine) - Closed Specialty Diagnoses / Procedures Referred By Contact Refer red To Contact Procedures Rodney Moore MD Physical Therapy [facility] [address] [place] [address] Treat twice [place] [address] Today Referral ID Status Reason Start Date Expiration Date Visits Requ ested Visits Authorized [id number] Closed 02/11/2018 05/13/2019 1 1 Procedure/Equipment (Routine) - Incomplete Specialty Diagnoses / Procedures Referred By Contact Refer red To Contact Procedures Rodney Moore MD XR Knee Lt 2 Views [address] [place] [address] Referral ID Status Reason Start Date Expiration Date Visits V isits Requested Authorized [id number] Incomplete 02/11/2018 05/13/2019 1 1 (Routine) - Closed Specialty Diagnoses / Procedures Referred By Contact Refer red To Contact Procedures Rodney Moore MD ECG 12 Lead Inpatient [address] [place] [address] Referral ID Status Reason Start Date Expiration Date Visits Requ ested Visits Authorized [id number] Closed 02/11/2018 05/13/2019 1 1 Reason for Visit Auth/Cert Specialty Diagnoses / Procedures Referred By Contact Refer red To Contact Diagnoses Primary osteoarthritis of left knee Procedures TOTAL KNEE JOINT REPLACEMENT Referral ID Status Reason Start Date Expiration Date Visits Requ ested Visits Authorized [id number] 1 1 Encounter Details Date Type Department Care Team Description 02/11/2018 - Hospital Encounter [facility] 6E Ortho Rodney Moore, S/P total knee 02/12/2018 Med Surg MD arthroplasty, left [address] [place] [address] R (Primary Dx) [facility]. [facility], [address] [place] [address] [phone] Social History Tobacco Use Types Packs/Day Years [...] aspirin,senna including possible sideeffects. Prescriptions filled by [facility] pharmacy. Belongings checklist reviewed with patient and belongings sent. Equipment sent: ice packs. Care plan issues addressed and education record updated. R: Patient and significant other verbalizes understanding and teaches back discharge instructions. Patient discharged by: wheelchair with family. Adriaan Bell OTR/Minh - 02/12/2018 1:30 PM CDT Occupational Therapy [...] Precautions: Falls Communication: Verbal/appropriate Location of treatment: [facility] Objective Information Current upper extremity [...] verbalized understanding following education. Recommended adaptive equipment: Metal Reclamation Kettle Tender, Tub bench/Shower chair, Grab bars: shower and [...] standby assist in 3 days. MET ?? termite helper goal: Patient will maximize independence and safety [...] with recommendations. Signature: Adriana Bell MA, OTR/L #[id number] 02/12/2018 1:37 PM NOTE: The clinician's signature certifies medical necessity for the treatment plan above. Bari Cantu PT - 02/12/2018 1:20 PM CDT Physical Therapy [facility] Physical Therapy Daily Progress Note Patient's diagnosis: [...] home today if cleared by PT Karma Wakefiled PA-C Cristopher Brooks, PT - 02/12/2018 8:49 AM CDT Physical Therapy [facility] Physical Therapy Daily Progress Note Patient's diagnosis: [...] timed treatment minutes today: - Therapist: Cristopher Boroks, PT 02/12/2018, 9:21 AM Yrn Palacios, PT [...] bilateral lower extremities Vitals: 125/62 Standardized test: -PAC 5 Items (out of 20 points): Raw [...] post-op period. D: Pt arrived to room [address] [place] [address], at 1310. Patient is alert and oriented x 4. Initial Vital Signs: Temp: 36.6 ??C (97.8 ??F) (02/11/18 1325) Pulse: 60 (02/11/18 1325) Resp: 16 (02/11/18 1325) BP: (!) 104/90 (02/11/18 1325) SpO2: 94 % (02/11/18 132) Pain rated at: 0. See Assessment and [...] PM CDT Hospitalist consult called to voicemail ([phone]) per Dr. Moore's post-op order request. Shy [...] Immediate Complications. Procedure Code(s): --- Professional --- 27683, LT, Arthroplasty, knee, condyle and plateau; medial AND lateral compartments with or without patella resurfacing (total knee arthroplasty) Diagnosis Code(s): --- Professional --- M17.12, Unilateral primary osteoarthritis, left knee CPT copyright 2016 [employer]. All rights reserved. The codes documented in this report are preliminary and upon learning solutions specialist review may be revised to meet current compliance requirements. Rodney Moore MD 02/11/2018 10:52:31 AM This document has been electronically signed. Number of Addenda: 0 Note Initiated On: 02/11/2018 10:50 AM Procedure Date: 02/11/2018 10:50:01 AM Rodney Moore MD - 02/11/2018 10:45 AM CDT [facility] Brief Operative Progress Note Surgery Date: 02/11/2018 [...] documented in this encounter Consult Notes Tata Alberto, DO - 02/12/2018 11:20 AM CDTAssociated Order(s): CONSULT HOSPITAL SERVICE Hospitalist Consult: Date of admission: 02/11/2018 Reason for consult: Co-management while patient in hospital HPI: This is a 57 y.o. female admitted to [facility] for left TKA Yue has medical history including DJD who underwent [...] 10 mg 10 mg Rectal DAILY PRN oRdney Moore MD ??? diphenhydrAMINE (BENADRYL) capsule 25-50 mg 25-50 mg Oral Q6H PRN Rodney Moore MD Or ??? diphenhydrAMINE (BENADRYL) injection 25-50 mg 25-50 mg Intravenous Q6H PRN Rodney Moore MD ??? hydroCHLOROthiazide (ORETIC) tablet 25 mg 25 mg Oral Daily Rodney Moore MD ??? HYDROmorphone (DILAUDID) tablet 2-4 mg 2-4 mg Oral Q2H PRN Rodney Moore MD 2 mg at 02/11/181929 ??? HYDROmorphone injectable 0.3-0.5 mg 0.3-0.5 mg [...] 4 mg 4 mg Intravenous Q6H PRN Rodnye Moore MD Or ??? ondansetron (ZOFRAN-ODT) disintegrating [...] AM documented in this encounter Miscellaneous Notes MyChart Activation Code - Kasey Carbajal HUC - 02/11/2018 4:04 PM CDT Thank you for enrolling in [employer]. Please follow the instructions below to securely access your online medical record. [employer] allows you to send messages to your doctor, view your test results, renewyour prescriptions, schedule appointments, and more. How Do I Sign Up? 1. In your Internet browser, go to [email or web address] 2. Click on the Enter activation code link under the New User? section. You will see the Activate your account! page. 3. Enter your activation code exactly as it appears below. You will not need to use this code after you???ve completed the sign-up process. If you do not sign up before the expiration date, you must request a new code. Activation Code: [email or web address] Expires: 03/13/2018 4:04 PM 4. Enter your last name and date of (mm/dd/yyyy) as indicated, then click Continue. You will be taken to the Let's set up your account page. 5. Create a username. This will be your [employer] login ID and cannot be changed, so think of one thatis secure and easy to remember. 6. Create a password. You can change your password at any time. 7. Enter your e-mail address. You will receive e-mail notification when new information is availablein [employer]. 8. Select your Security Questions and enter your answers. These can be used at a later time if you forget your password. 9. Check the box to accept the terms and conditions. Click Create your account. You can now view your medical record. Additional Information If you have questions, you can call [phone] to talk to our [employer] staff. Remember, [employer] is NOT to be used for urgent [...] - 02/12/2018 8:38 AM CDT Performed at [facility], [address] [place] [address] CLIA number [id number] Rodney Moore MD LAB_1 Performing Organization Address City/State/ZIP Code Phon e Number PN SOFT [address] [place] [address] XR Knee Lt 2 Views (02/11/2018 2:26 [...] GHP QTc 437 ms MUSE GHP P Ary 23 degrees MUSE GHP R Ary 4 degrees MUSE GHP T Ary 10 degrees MUSE GHP Specimen (Source) Anatomical [...] MD PN ECG ORDERABLES Performing Organization Address City/State/ZIP Code Phon e Number MUSE GHP [address] [place] [address] Bedside Glucose Monitor (02/11/2018 7:20 AM CDT) P athologist Signature Bedside Blood 109 mg/dL PN SOFT Glucose Test Comment: Performed at [address] [place] [address] Specimen Anatomical Collection Method Collection Time Receive d Time (Source) Location / / Volume Laterality 02/11/2018 7:20 AM 8 7:25 CDT AM CDT Rodney Moore MD LAB_1 Performing Organization Address [facility] Phon e Number PN SOFT [address] [place] [address] [phone] Differential (02/11/2018 7:14 AM CDT) P athologist Signature Absolute 4.9 1.8 - 8.0 [...] - 02/11/2018 7:35 AM CDT Performed at [address] [address] CLIA number [id number] Rodney Moore MD LAB_[address] [facility] Phon e Number PN SOFT [address] [place] [address] Anion Gap (02/11/2018 7:14 AM CDT) P athologist Signature ANION GAP 11 0 - 16 mEq/L PN SOFT Specimen Anatomical Collection Method Collection Time Receive d Time (Source) Location / / Volume Laterality 02/11/2018 7:14 AM 8 7:19 CDT AM CDT Narrative PN SOFT - 02/11/2018 7:36 AM CDT Performed at [address] [address] CLIA number [id number] Rodney Moore MD LAB_1 Performing Organization Address [facility] Phon e Number PN SOFT [address] [place] [address] (ABNORMAL) HGB A1C (02/11/2018 7:14 AM CDT) athologist Signature HGB A1C 5.8 (H) 4.0 - 5.6 % PN SOFT Specimen Anatomical Collection Method Collection Time Receive d Time (Source) Location / / Volume Laterality 02/11/2018 7:14 AM 8 7:19 CDT AM CDT Narrative PN SOFT - 02/11/2018 1:26 PM CDT Performed at [address] [address] CLIA number [id number] Rodney Moore MD LAB_1 Performing Organization Address [facility] Phon e Number PN SOFT [address] [place] [address] Complete Blood Count-W/Diff :only if not drawn [...] - 02/11/2018 7:35 AM CDT Performed at [address] [address] CLIA number [id number] Rodney Moore MD LAB_1 Performing Organization Address [facility] Phon e Number PN SOFT [address] [place] [address] (ABNORMAL) Basic Metabolic Panel: only if not [...] - 02/11/2018 7:36 AM CDT Performed at [facility], [address] [place] [address] CLIA number [id number] Rodney Moore MD LAB_1 Performing Organization Address City/State/ZIP Code Phon e Number PN SOFT [address] [place] [address] [phone] documented in this encounter Visit Diagnoses Diagnosis Primary osteoarthritis of left knee - Pr imary Primary localized osteoarthrosis, lower leg S/P total knee arthroplasty, left documented in this encounter Administered Medications Inactive Administered Medications - up to 3 most recent administrations Medication Order MAR Action Action Date Dose Rate Site acetaminophen (TYLENOL) tablet Given 02/11/2018 8:15 AM CDT 1,00 0 mg 1,000 mg 1,000 mg, Oral, ONCE, On Wed02/11/18 at 0730, For 1 dose, Give in Preop., Pre-op acetaminophen (TYLENOL) tablet 650 mg Given 02/12/2018 12:37 PM CDT 650 mg 650 mg, Oral, QID, First [...] Given 02/11/2018 7:31 PM CDT 162 mg ceFAZolin (aka ANCEF) 2 g in dextrose Started 02/12/2018 1:57 AM CDT 2 g 200 mL/hr 100 ml IVPB 2 g, Intravenous, Administer over 30 Minutes, Q8H (NON-STND), First dose on Wed02/11/18 at 1700, For 2 doses, Post-op Started 02/11/2018 5:03 PM CDT 2 g 200 mL/hr celecoxib (CeleBREX) capsule 200 mg Given 02/11/2018 8:15 AM CDT 200 mg 200 mg, Oral, ONCE, On Wed02/11/18 at 0730, For 1 dose, Give in Preop. DO NOT give if history of GI bleed; CT or sulfa allergy., Pre-op diphenhydrAMINE (BENADRYL) capsule 25-50 mg 25-50 mg, [...] 8-10), Starting on Wed02/11/18 at 1326, Until Wed02/12/18 at 1726, Do NOT administer at the same time as IV opioids. May administer 1 hour after IV opioid administration. HOLD if on MUSIC [employer]NSH[employer]. Use of ORAL opioids is encouraged as patients anticipate discharge. (IV medications will be discontinued 48 hours post-op.) Post-op ? May give for anticipatory pain (i.e. prior to therapies, procedures) regardless of current pain score, Post-op Given 02/11/2018 7:30 PM CDT 2 mg Given 02/11/2018 3:26 PM CDT 2 mg HYDROmorphone injectable 0.2-0.4 mg Given 02/11/2018 11:33 AM CDT 0.2 mg 0.2-0.4 mg, Intravenous, Q10MIN PRN, Other, : Moderate to Severe Pain (pain score 5 and above) in the immediate postop period when longer acting agent is desired., Starting on Wed02/11/18 at 0840, Until Wed02/11/18 at 1323, Maximum cumulative dose is 2 mg. For patients with a regional, spinal, or local anesthetic, may give for anticipated pain as the anesthetic wears off., PACU/Recovery ketorolac (TORADOL) injection 30 mg Given 02/12/2018 2:00 PM CDT 30 mg 30 mg, Intravenous, Q6H, First dose on Wed02/11/18 at 1400, Last dose on Wed02/13/18 at 0800, For 48 hours, Do not give if CrCl <60 or history of GI bleed, Post-op Given 02/12/2018 8:01 AM CDT 30 mg Given 02/12/2018 1:57 AM CDT 30 mg lactated ringers Continue Current Bag 02/11/2018 11:03 AM 25 mL/hr 25 mL/hr infusion CDT 25 mL/hr, Intravenous, CONTINUOUS, Starting on Wed02/11/18 at 0730, Administer on all preop surgery patients, ages 12 and older, unless specified differently in the Protocol for Preop Initiation of IV fluids Order Set., Pre-op Started 02/11/2018 9:58 AM CDT Started 02/11/2018 7:15 AM CDT 25 mL/hr 25 mL/hr Right Hand magnesium hydroxide (MILK OF MAGNESIA) Given 02/12/2018 8:01 AM CDT 30 mL suspension 30 mL 30 mL, Oral, DAILY, First dose on Wed02/12/18 at 0800, Until Discontinued, Hold for loose stools., Post-op ondansetron (ZOFRAN) injection 4 mg Given 02/11/2018 8:15 AM CDT 4 mg Right Hand 4 mg, Intravenous, ONCE, On Wed02/11/18 at 0730, For 1 dose, Give in Preop., Pre-op ondansetron (ZOFRAN) injection 4 mg 4 mg, Intravenous, Q6H PRN, Nausea, Vomiting, Starting on Wed02/11/18 at 1326, Until Wed02/12/18 at 1726, Give IV if un able to take oral. Give lorazepam if nausea is not resolved in 15 minutes, Post-op ondansetron (ZOFRAN-ODT) disintegrating tablet 4 mg 4 mg, Oral, Q6H PRN, Nausea, Vomiting, S tarting on Wed02/11/18 at 1326, Until 02/12/18 at 1726, Give lorazepam if nause a is not resolved in 15 minutes, Post-op oxyCODONE (OXYCONTIN) controlled release Given 02/11/2018 8:15 A M CDT 10 mg tablet 10 mg 10 mg, Oral, ONCE, On Wed02/11/18 at 0730, For 1 dose, Give in Preop., Pre-op senna (SENOKOT) tablet 1 Tablet Given 02/11/2018 7:31 PM CDT 1 Tablet 1 Tablet, Oral, DAILY - 1999, First dose on Wed02/11/18 at 2000, Until Discontinued, Give every day while on opioids (stimulant) starting day of surgery. Hold for loose stools., Post-op sodium chloride 0.9% infusion Started 02/12/2018 1:57 AM CDT 75 mL/hr Intravenous, at 75 mL/hr, CONTINUOUS, Starting on Wed02/11/18 at 1130, Start after completion of bag currently infusing, Post-op Started 02/11/2018 11:30 AM CDT 75 mL/hr documented in this encounter Active and Recently Administered Medications Times are shown in CDT. Scheduled Medication Order 02/10/2018 02/11/2018 02/12/2018 acetaminophen (TYLENOL) tablet 1,000 mg (COMPLETED) 814 (Given - Provider: Shy Neil, RN) 1,000 mg, Oral, ONCE, Wed02/11/18 at 0730, For 1 dose, Give in P reop., Pre-op acetaminophen (TYLENOL) tablet 650 mg 16 25 (Given - Provider: Collins Adam, NIKHIL)1930 (Given - Provider: Collins Adam RN) 08 (Given - Provider: Martha Christianson, NIKHIL)1237 (Given - Provider: Martha Christianson, NIKHIL) 650 mg, Oral, QID, First dose on Wed02/11/18 at 1600, Post-op aspirin EC enteric coated tablet 162 mg 1930 (Given - Provider: Collins Adam RN) 08 [...] 0.9 % 100 mL IVPB ( COMPLETED) 0915 (Started - Provider: Ana Cheung APRN, SHODDY MILL WORKER) 3 g, Intravenous, Administer over 30 Min utes, ONCE, Wed02/11/18 at 0900, For 1 dose, Infuse within 60 minutes prior to incision; Re-dose 1 gram IV every 4 hours after initial dose until incision closed., Pre-op celecoxib (CeleBREX) capsule 200 mg (COMPLETED) 814 (Given - Provider: Shy Neil, NIKHIL) 200 mg, Oral, ONCE, Wed02/11/18 at 0730, For 1 dose, Give in Preop. DO NOT give if history of GI bleed; CT or sulfa allergy., Pre-op dexamethasone (DECADRON) injection 8 mg (COMPLETED) 929 (Given - Provider: Ana Cheung APRN, SHODDY MILL WORKER) 8 mg, Intravenous, ONCE, Wed02/11/18 at 0730, For 1 dose, To be given by SHODDY MILL WORKER in OR prior to induction. DO NOT [...] 30 mL 08 (Given - Provider: Martha Christianson RN) 30 mL, Oral, DAILY, First dose on [...] (COMPL ETED) 0815 (Given - Provider: Shy Neil RN) 10 mg, Oral, ONCE, Wed02/11/18 at 0730, For 1 dose, Give in Preo p., Pre-op senna (SENOKOT) tablet 1 Tablet 1930 (Given - Pr ovider: Collins Adam RN) 1 Tablet, Oral, DAILY - 1999, First dose on Wed02/11/18 at 2000, Give every day while on opioids (stimulant) starting day of surgery. Hold for loose stools., Post-op tranexamic acid (CYKLOKAPRON) 1,000 mg i n sodium chloride 0.9 % 50 mL IVPB (COMPLETED) 0925 (Started - Provider: Anastasiya Cheung APRN, ANA)1029 (Bolus - Provider: María Montoya APRN, CRNA) 1,000 mg, Intravenous, ONCE, Wed02/11/18 at 0730, For 1 dose, Maximum administration rate is 100 mg/minute. To be given in OR by SHODDY MILL WORKER prior to incision. Re-dose 1000 mg IV [...] e Constipation, Starting Wed02/11/18 at 1326, Post-op nfrvjjjlcgz-drrgpkfrdbt-kqmtatssc 0.25%- [id number] 40 mL in 0.9% sodium chloride 60 [...] I V opioid administration. HOLD if on MUS[employer]NSHIP. Use of ORAL opioids is encouraged as patients anticipate discharge. (IV medications will be discontinued 48 hours post-op.) Post-op ? May give for anticipatory pain (i.e. prior to therapies, procedure s) regardless of current pain score, Post-op HYDROmorphone injectable 0.2-0.4 mg (CANCELED) 1133 (Given - Provider: Melody Estrada RN) 0.2-0.4 [...] time as ORAL opioids. HOLD if on MUS[employer]NSHIP., Post-op naloxone (NARCAN) injection 0.08 mg 0.08 [...] 00 mL sterile irrigation (surgery only) (CANCELED) 0947 (Given - Provider: Dwight Quiles) ONCE PRN, Starting Wed02/11/18 at 0947, Intra-op sodium chloride for irrigation 0.9 % (CANCELED) 0947 (Given - Provider: Rodney Moore MD) ONCE PRN, Starting Wed02/11/18 at 0947, Intra-op sodium phosphate (FLEET) enema 1 Enema 1 Enema, Rectal, PRN, Other, Severe Cons tipation, Starting Wed02/11/18 at 1326, Post-op vancomycin (VANCOCIN) powder for bone cement (CANCELED) 0947 (Given - Provider: Rodney Moore MD) ONCE PRN, Starting Wed02/11/18 at 0947, Intra-op Linked Groups Order Group 1: diphenhydrAMINE (BENADRYL) capsule 25-50 mgJump to med 25-50 mg, Oral, Q6H PRN, Itching, Starti ng Wed02/11/18 at 1326
If able to take ORAL medications.
Post-op Or diphenhydrAMINE (BENADRYL) injection 25-50 mgJump to med 25-50 mg, Intravenous, Q6H PRN, Itching, Starting Wed02/11/18 at 1326
Give IV only if unable to take ORALLY.
Post-op Group 2: ondansetron (ZOFRAN) injection 4 mgJump to med 4 mg, Intravenous, Q6H PRN, Nausea, Vomi ting, Starting Wed02/11/18 at 1326
Give IV if unable to take oral. Give lorazepam if nausea is not resolved in 15 minutes
Post-op Or ondansetron (ZOFRAN-ODT) disintegrating tablet 4 mgJump to med 4 mg, Oral, Q6H PRN, Nausea, Vomiting, S tarting Wed02/11/18 at 1326
Give lorazepam if nausea is not resolved in 15 minutes
Post-op documented in this encounter Care Teams Director Educational Radio Relationship Specialty Start Date End Date Adarsh Salazar MD PCP - General Urgent Care 02/11/18 [address] [place] [address] documented as of this encounter
--- OUTSIDE RECORDS SUMMARY | 2022-06-09 15:04 | XMS_ITS | Encounter Summary ---
:1960 Author Organization [facility] Address [address], [place] [address] Care Team Providers Name Role Phone Adarsh Salazar MD Primary Care Provider Reason for Visit Reason Comments Post-Op Follow Up Call Encounter Details Date Type Department Care Team Description 02/14/2018 Telephone [facility] Rodney Moore MD Post-Op Follow Up Call CENTER [address] [place] [address] [address] [place], [place] [phone] (Wo rk) Social History Tobacco Use Types Packs/Day Years Used Date Smoking Tobacco: Never Smokeless Tobacco: Never Sex Assigned at Date Recorded Not on file documented as of this encounter Nursing Notes Azeb Estrada RN - 02/14/2018 11:21 AM CDT Post-operative follow up call placed to patient at home. Date of surgery: 02/11/2018 [facility] Date of discharge: 02/12/2018 -Pain: Pt states she is doing well. Pt states she is taking the pain medication as directed. Concerned about the pain and swelling above the knee. Let her know this is probably from the tourniquet usedin surgery. Encouraged her to continue to ice and elevate above heart level. -Bowels: No issues with constipation. -Incision: Tegaderm intact. No new drainage, no redness. Encouraged to call with any questions or concerns before or after next appointment. Post hospitalization discharge follow up call completed. See doc flowsheet: SURGDC for details documented in this encounter Plan of Treatment Not on filedocumented as of this encounter Visit Diagnoses Not on filedocumented in this encounter Care Teams Returned Item Clerk Relationship Specialty Start Date End Date Adarsh Salazar MD PCP - General Urgent Care 02/11/18 [address] [place], [place] [address] documented as of this encounter
--- OUTSIDE RECORDS SUMMARY | 2022-06-09 15:04 | XMS_ITS | Encounter Summary ---
:1960 Author Organization [employer] Address [address], [place] [address] Care Team Providers Name Role Phone Adarsh Salazar MD Primary Care Provider Reason for Visit Auth/Cert Specialty Diagnoses / Procedures Referred By Contact Refer red To Contact Diagnoses Primary osteoarthritis of left knee Procedures TOTAL KNEE JOINT REPLACEMENT Referral ID Status Reason Start Date Expiration Date Visits Requ ested Visits Authorized [id number] 1 1 Encounter Details Date Type Department Care Team Description 02/11/2018 Anesthesia Event [employer] Kit Sharp Room MD [address] [facility]. [address] [place] [address] [phone] Anesthesia Record Procedure Summary Procedure Name Responsible Anesthesia Start Anesthesia Stop Anesthesiologist Time Time TOTAL KNEE JOINT Kit Sharp MD 02/11/18 0907 8 1056 REPLACEMENT (Left: Knee) Events Date Time Event Comment 02/11/2018 0845 0907 An Start 0907 An Start Data 0910 MD/DO Present 0918 Face Tent 0933 An Tourn Inflated 300 0939 An Tourn Deflated 0940 An Tourn Inflated 350 1040 MD/DO Present Ltd visits due t o total jt repl 1043 An Tourn Deflated 1050 an stop data 1056 An Stop Care transferred . 1057 Care Handoff Note I discussed wi th the receiving nurse and we: 1) Identified the p atient, jasmine family member(s) or patient surrogat e 2) Identified the responsible practitioner 3) Reviewed the pertinent medical history 4) Discu ssed the surgical/procedure course 5) Reviewed intr a-op anesthesia management and issues during an esthesia 6) Set expectations for the post-procedu re period 7) Allowed opportunity for questions an d acknowledgement of understanding of report Electr onically signed by María Montoya APRN, CRNA Name Total midazolam injection 2 mg/2 mL (VERSED) 2 mg fentaNYL injection (SUBLIMAZE) 100 mcg propofol 10 mg/mL for procedural sedation (aka diPRIva n) 30 mg propofol 10 mg/mL for procedural sedation (aka diPRIva n) 405.07 mg ceFAZolin (ANCEF) 3 g in sodium chloride 0.9 % 100 mL IVPB 3 g tranexamic acid (CYKLOKAPRON) 1,000 mg in sodium chlor nik 0.9 % 50 mL IVPB 2,000 mg dexamethasone (DECADRON) injection 8 mg 8 mg lactated ringers infusion 1,700 mL Agents Name O2 Blood No blood administrations on file. Lines, Drains, and Airways Type Details Placement Removal Peripheral IV Placement Date: 02/11/18 0730 by 02/12/18 1416 b y 02/11/18; Placement Shy Neil, Minh Delgado RN Time: 729; Pre-existing: No; Inserted by?: RN; Size (Gauge): 18 G; Orientation: Right; Site Prep: ChloraPrep; Local Anesthetic: None; Insertion attempts: 1; Patient Tolerance: Tolerated well; Removal Date: 02/12/18; Removal Time: 1416 Indwelling Urethral 02/11/18; 0920; No; 02/11/18 0920 by 8 1305 by Catheter rhett baron; Rhett Baron RN Whalen, Krist in A, RN Indwelling Catheter; 16 Fr.; 1 Incision/Surgical Site 02/11/18; 1023; #1; 02/11/18 1023 by 02/16 08/05 1526 by Lda, No; Knee; Left; Rhett Baron RN Discontinue 02/26/18; 1526 documented in this encounter Social History Tobacco Use Types Packs/Day Years Used Date Smoking Tobacco: Never Smokeless Tobacco: Never Sex Assigned at Date Recorded Not on file documented as of this encounter Miscellaneous Notes Anesthesia Postprocedure Evaluation - Kit Sharp MD - 02/11/2018 1:00 PM CDT [facility] Anesthesia Post-op Note Patient: Celeste Eid Post-Op Diagnosis: Primary osteoarthritis of left knee Procedure Performed: Procedure(s): TOTAL KNEE JOINT REPLACEMENT Anesthesia Type: Spinal Post-op vital signs: BP 114/67 Pulse (!) 53 Temp 98.6 ??F (37 ??C) (Temporal Artery) Resp 13 Ht 5' 4 Wt 120.2 kg (265 lb) SpO2 95% BMI 45.49 kg/m2 Pain Score: Presence Of Pain: denies Preferred Pain Scale: number (Numeric Rating Pain Scale) Pain Rating (0-10): Rest: 0 Pain Rating (0-10): Activity: 0 Post-op assessment: No anesthesia complication. Patient location: PACU Airway Status: Patent Cardiovascular function: Satisfactory Hydration status: Satisfactory PONV: None Level of Consciousness: Awake Fully Participates Postop Assessment: Patient tolerated procedure well. Electronically signed by: Kit Sharp MD 02/11/2018 1:00 PM Anesthesia Procedure Notes - Ana Cheung APRN, CRNA - 02/11/2018 9:17 AM CDTAssociated Order(s): TRIA SPINAL BLOCK Spinal Block Patient Location: OR Preanesthetic Checklist: risks and benefits discussed IV checked monitors and equipment checked patient identified pre-op evaluation Timeout: Correct Patient: yes Correct Position: yes Correct Procedure:yes Correct Site: yes Spinal Block: Procedure:Intrathecal Patient Position: sitting Sterile Prep:Betadine and Sterile gloves Insertion site: L4-5 Approach: midline Needle type: Cassandra Needle gauge: 25 G Needle length: 3.5 in Attempts: 1 Monitoring:cardiac cath rn and continuous pulse oximetry Cerebral spinal fluid: clear Paresthesias: No Time injected: 02/11/2018 9:15 AM Local anesthetics: isobaric and Bupivacaine 0.75 %, Dose in ML: 1.5 Attestations: I personally performed the procedure. Notes: Alejandro Sharp MD Anesthesia Preprocedure Evaluation - Kit Sharp MD - 02/11/2018 8:24 AM CDT [facility] Anesthesia Pre-op Evaluation Procedure: Procedure(s): TOTAL KNEE JOINT REPLACEMENT HPI: 57 y.o. old female with Primary osteoarthritis of left knee NPO Status: Last Fluid Intake Time: 2099 Last Fluid Intake Date: 02/10/18 Last Food Intake Date: 02/10/18 Last Food Intake Time: 1999 No Known Allergies No past medical history on file. Patient Active Problem List Diagnosis ??? Primary osteoarthritis of left knee No past surgical history on file. Outpatient Prescriptions Marked as Taking for the 02/11/18 encounter (Hospital Encounter) Medication Sig Dispense Refill ??? chlorhexidine gluconate (HIBICLENS) 4 % external liquid Apply topically daily for 5 days. Showerdaily washing the entire body from neck down. Indications: Positive MSSA Nasal Swab 236 mL 0 ??? hydroCHLOROthiazide (ORETIC) 25 MG tablet TK 1 T PO QD 0 ??? metoprolol succinate (TOPROL XL) 100 MG 24 hour release tablet TK 1 T PO QD 3 ??? mupirocin (BACTROBAN) 2 % ointment Place into both nostrils two times a day for 5 days. Apply a thin layer inside your nostrils. Indications: Positive MSSA Nasal Swab 22 g 0 Current Facility-Administered Medications Medication Dose Route Frequency ??? ceFAZolin (ANCEF) 3 g in sodium chloride 0.9 % 100 mL IVPB 3 g Intravenous Once ??? dexamethasone (DECADRON) injection 8 mg 8 mg Intravenous Once ??? lactated ringers infusion 25 mL/hr Intravenous Continuous ??? tranexamic acid (CYKLOKAPRON) 1,000 mg in sodium chloride 0.9 % 50 mL IVPB 1,000 mg Intravenous Once ??? vancomycin (VANCOCIN) powder for bone cement 500 mg 500 mg See Admin Instructions Once Labs: Lab Results Component Value Date/Time SODIUM 140 02/11/2018 07:14 AM K 3.6 02/11/2018 07:14 AM CHLORIDE 103 02/11/2018 07:14 AM BUN 15 02/11/2018 07:14 AM CREATININE 0.59 02/11/2018 07:14 AM GLUCOSE 118 (H) 02/11/2018 07:14 AM Lab Results Component Value Date/Time WBC 8.5 02/11/2018 07:14 AM HGB 13.9 02/11/2018 07:14 AM HCT 41.5 02/11/2018 07:14 AM PLTS 283 02/11/2018 07:14 AM No results found for: INR No results found for: HCGQUANT Urine : Urine : Blood Bank: No results found for: ABORH, ABSCR EKG: No results found for this or any previous visit. Physical Exam: BP (!) 142/98 Pulse 76 Temp 97.2 ??F (36.2 ??C) (Temporal Artery) Resp 18 Ht 5' 4 Wt 120.2 kg (265 lb) SpO2 97% BMI 45.49 kg/m2 Assessment/Plan: Review of Systems Patient does not have GERD. Patient is not a smoker. The patient denies alcohol use. Patient denies any recent URI. History of PONV: No. History of motion sickness: No. Patient denies any personal or family history of anesthesia complications (PONV). Exam Mental Status: Alert and oriented. Mallampati score: II (Two). Mouth opening: Normal Thyromental Distance: > 3 finger breadths and Normal Neck Extension: Full Neck Circumference > 40 cm?: No Current airway assessment:Normal Dentition: Normal. Cardiac Exam: Regular rate and rhythm. Respiratory Exam: Breath sounds clear to auscultation Assessment ASA Status: 3 . Plan Anesthesia type: Spinal Induction: Maintenance: PONV Risk Score Peds:0 PONV Risk Score Adult: 2 PONV Prophylaxis (planned):Ondansetron Anesthetic plan, risks, benefits and alternatives discussed with: Patient H&P Reviewed and Patient examined, no change observed IV access Antibiotics per surgery Electronically signed by: Kit Sharp MD 02/11/2018 8:24 AM documented in this encounter Plan of Treatment Pending Results Name Type Priority Associated Diagnoses Date/Ti me Tria Spinal Block Other Routine 02/11/2018 9:18 AM CDT documented as of this encounter Procedures Procedure Name Priority Date/Time Associated Diagnosis Comme nts TRIA SPINAL BLOCK Routine 02/11/2018 9:18 AM CDT Procedure Note - Ansley Cheung A, ANA HERNANDEZ - 02/11/2018 9:17 AM CDTThis note is in progress. Formatting of this note migh t be different from the original. Spinal Block Patient Location: OR Preanesthetic Checklist: risks and benefits discussed IV checked monitors and equipment check ed patient identified pre-op evaluation Timeout: Correct Patient: yes Correct Position: yes Correct Procedure:yes Correct Site: yes Spinal Block: Procedure:Intrathecal Patient Position: sitting Sterile Prep:Betadine and St erile gloves Insertion site: L4-5 Approach: midline Needle type: Cassandra Needle gauge: 25 G Needle length: 3.5 in Attempts: 1 Monitoring:cardiac cath rn a nd continuous pulse oximetry Cerebral spinal fluid: clear Paresthesias: No Time injected: 02/11/2018 9:1 5 AM Local anesthetics: isobaric and Bupivacaine 0.75 %, Dose in ML: 1.5 Attestations: I personally p erformed the procedure. Notes: By Minh Sharp MD documented in this encounter Visit Diagnoses Not on filedocumented in this encounter Administered Medications Inactive Administered Medications - up to 3 most recent administrations Medication Order MAR Action Action Date Dose Rate Site ceFAZolin (ANCEF) 3 g in sodium Started 02/11/2018 9:15 AM CDT 3 g chloride 0.9 % 100 mL IVPB 3 g, Intravenous, Administer over 30 Minutes, ONCE, On Wed02/11/18 at 0900, For 1 dose, Infuse within 60 minutes prior to incision; Re-dose 1 gram IV every 4 hours after initial dose until incision closed., Pre-op dexamethasone (DECADRON) injection 8 mg Given 02/11/2018 9:30 AM CDT 8 mg 8 mg, Intravenous, ONCE, On Wed02/11/18 at 0730, For 1 dose, To be given by INSPECTING SUPERVISOR in OR prior to induction. DO NOT give if patient is diabetic., Pre-op fentaNYL (SUBLIMAZE) injection Given 02/11/2018 9:12 AM CDT 50 mcg Intravenous, Starting on Wed02/11/18 at 0909, Until Wed02/11/18 at 1057 Given 02/11/2018 9:09 AM CDT 50 mcg lactated ringers Continue Current Bag 02/11/2018 11:03 [...] CDT 25 mL/hr 25 mL/hr Right Hand midazolam (VERSED) injection Given 02/11/2018 9:09 AM CDT 1 mg Intravenous, Starting on Wed02/11/18 at 0907, Until Wed02/11/18 at 1057 Given 02/11/2018 9:07 AM CDT 1 mg propofol (aka diPRIvan) Rate/Dose 02/11/2018 30 mcg/kg/min 21.64 injection Change 10:34 AM CDT mL/hr Intravenous, Starting on Wed02/11/18 at 0912 Rate/Dose Change 02/11/2018 9:50 AM CDT 50 mcg/kg/min 36.06 mL/hr Rate/Dose Change 02/11/2018 9:49 AM CDT 40 mcg/kg/min 28.85 mL/hr propofol (aka diPRIvan) injection Given 02/11/2018 9:50 AM CDT 30 mg Intravenous, Starting on Wed02/11/18 at 0950 tranexamic acid (CYKLOKAPRON) 1,000 mg in Bolus 2017 10:29 AM CDT 1,000 mg sodium chloride 0.9 % 50 mL IVPB 1,000 mg, Intravenous, ONCE, On Wed02/11/18 at 0730, For 1 dose, Maximum administration rate is 100 mg/minute. To be given in OR by INSPECTING SUPERVISOR prior to incision. Re-dose 1000 mg IV during wound closure., Pre-op Started 02/11/2018 9:25 AM CDT 1,000 mg documented in this encounter Care Teams Photographer Finish Relationship Specialty Start Date End Date Adarsh Salazar MD PCP - General Urgent Care 02/11/18 [address] [place] [address] documented as of this encounter
--- OUTSIDE RECORDS SUMMARY | 2022-06-09 15:04 | XMS_ITS | Encounter Summary ---
:1960 Author Organization [employer] Address [address] [place] [address] Care Team Providers Name Role Phone Unavailable Primary Care Provider Unavailable Encounter Details Date Type Department Care Team Description 01/28/2018 Notes/Orders [facility] Rodney Moore MD Screening examination [facility] [address] [place] [address] for infectious [address] [place], [place] disease (Primary Dx) [place], [place] [phone] (Wo rk) Social History Tobacco Use Types Packs/Day Years Used Date Smoking Tobacco: Never Smokeless Tobacco: Never Sex Assigned at Date Recorded Not on file documented as of this encounter Plan of Treatment Not on filedocumented as of this encounter Results (ABNORMAL) MRSA MSSA Preop Culture - Staph Aureus Culture (02/01/2018 3:11 PM CDT) Component Value Ref Test Analysis Performed At [facility] Range Method Time Signature Source Nares PN [...] - 02/03/2018 9:25 AM CDT Performed at [facility], [address] [place] [address], CLIA Number [id number] Organism Antibiotic Method Susceptibility Staphylococcus aureus Clindamycin JOHNY SENSITIVITY 0.25 mcg/m L: Sensitive Staphylococcus aureus Erythromycin JOHNY SENSITIVITY <=0.25 mcg /mL: Sensitive Comment: Susceptible implies suscepti bility to Azithromycin, Clarithromycin and Dirithrom ycin Staphylococcus aureus Linezolid JOHNY SENSITIVITY 2 mcg/mL: Sensitive Staphylococcus aureus Oxacillin JOHYN SENSITIVITY <=0.25 mcg /mL: Sensitive Comment: Predicts [...] Code Phon e Number PN SOFT [address] [place] [address] documented in this encounter Visit Diagnoses Diagnosis Screening examination for infectious dis ease - Primary Screening examination for unspecified in fectious disease Screening examination for infectious dis ease Screening examination for unspecified in fectious disease documented in this encounter
--- OUTSIDE RECORDS SUMMARY | 2022-06-09 15:04 | XMS_ITS | Encounter Summary ---
:1960 Author Organization [facility] Address [address], [place] [address] Care Team Providers Name Role Phone Unavailable Primary Care Provider Unavailable Reason for Visit Procedure/Equipment (Routine) - Incomplete Specialty Diagnoses / Procedures Referred By Contact Refer red To Contact Procedures Provider, Foreign Images Foreign Image(S) XR knee Lt [address] [place] [address] Referral ID Status Reason Start Date Expiration Date Visits V isits Requested Authorized [id number] Incomplete 12/03/2017 03/04/2019 1 1 Encounter Details Date Type Department Care Team Description 09/22/2016 Imaging Radiology PACS Provider, Foreign Images [address] [facility] [address] [place] [address] [place] [address] Social History Tobacco Use Types Packs/Day Years Used Date Smoking Tobacco: Never Assessed Sex Assigned at Date Recorded Not on file documented as of this encounter Plan of Treatment Not on filedocumented as of this encounter Procedures Procedure Name Priority Date/Time Associated Diagnosis Comme nts FOREIGN IMAGE(S) XR Routine 09/22/2016 10:00 AM R esults for this KNEE LT WIRE MESH KNITTER procedure are i n the results section. documented in this encounter Results Foreign Image(S) XR knee Lt (09/22/2016 10:00 AM WIRE MESH KNITTER) Specimen (Source) Anatomical Location Collection Method / Collectio n Time Received Time / Laterality Volume Narrative PN POCT - 12/03/2017 9:57 AM CDT These outside images have been uploaded into PACS. If the results were provided, they will be located on the Me kinza tab in the patient's chart. Foreign Images Provider RAD NON-REPORTABLES Performing Organization Address City/State/ZIP Code Phon e Number POCT PN POCT documented in this encounter Visit Diagnoses Not on filedocumented in this encounter
--- OUTSIDE RECORDS SUMMARY | 2022-06-09 15:04 | XMS_ITS | Encounter Summary ---
:1960 Author Organization [employer] Address [address] [place] [address] Care Team Providers Name Role Phone Unavailable Primary Care Provider Unavailable Reason for Referral Therapies (Routine) - Closed Specialty Diagnoses / Procedures Referred By Contact Refer red To Contact Diagnoses Arthritis of left knee Rodney Pal MD [address] [facility] [place] [address] Referral ID Status Reason Start Date Expiration Date Visits Requ ested Visits Authorized [id number] Closed 12/03/2017 02/01/2018 1 1 Scheduling Instructions If scheduling assistance is needed, plea se inquire with the medical office staff upon exiting your appointment or contact the ordering clinic for recommended locations. This recommended service/s may not be co armaan by your insurance coverage. To find out your specific benefit coverage, please c all the number on your insurance card. Reason for Visit Reason Comments Knee Pain or Injury Left knee pain x2 years, inc reasing. Encounter Details Date Type Department Care Team Description 12/03/2017 Office Visit [facility] Rodney Pal, Arthri tis of left Urgent Care knee (Primary Dx) [address] [facility] [address] [place] [address] [place] [address] VALERIY MD [phone] (Wo rk) Social History Tobacco Use Types Packs/Day Years Used Date Smoking Tobacco: Never Smokeless Tobacco: Never Sex Assigned at Date Recorded Not on file documented as of this encounter Last Filed Vital Signs Vital Sign Reading Time Taken Comments Blood Pressure - - Pulse - - Temperature 36.3 ??C (97.3 ??F) 12/03/2017 8:46 AM CDT Respiratory Rate - - Oxygen Saturation - - Inhaled Oxygen Concentration - - Weight 121.1 kg (267 lb) 12/03/2017 8:46 AM CDT Height 162.6 cm (5' 4) 12/03/2017 8:46 AM CDT Body Mass Index 45.83 12/03/2017 8:46 AM CDT documented in this encounter Patient Instructions Patient InstructionsNinfa Austin - 12/03/2017 8:[address] Rodney Pal MD Sports & Orthopaedic Medicine [facility] Medication Requests: Prescriptions are not filled on Weekends or on Weekdays after 3:00PM For all medication refills: Request a refill using [employer] [facility] or contact your Pharmacy Acute Injury Clinic Nurse Line: Please contact Acute Injury Clinic Nurse line for all medical requests and questions at [phone] MRI Scheduling: To schedule an MRI at [facility] please call [phone] Paperwork Requests: Questions regarding FMLA or disability paperwork please call [phone] Phone lines are answered 8AM to 5PM Wednesday - Wednesday. Left knee arthritis Ice Physical therapy documented in this encounter Progress Notes Rodney Pal MD - 12/03/2017 8:35 AM CDT [facility] 12/03/2017 Chief Complaint: Left knee pain History of Present Illness: Celeste Eid is a right hand dominant 57 y.o. female who presents for evaluation of knee pain.She reports desire for cortisone injection. The patient reports that she has had pain for 2 years, and cannot walk without pain. She has received a gel injection on 09/22/2016. She denies going through physical therapy. She notes standing worsens the pain. Review of Systems: (+) left knee pain (-) Fever (-) Rash (-) Numbness (-) Tingling Past Medical History: HBP Arthritis Past Surgical History: Disc removed L4-5, fused neck Social History: She is active with remodeling, boating and fishing. Physical Exam: Temp 36.3 ??C (97.3 ??F) (Tympanic) Ht 1.626 m (5' 4) Wt 121.1 kg (267 lb) BMI 45.83 kg/m2 Skin: No erythema or ecchymosis. Neuro: Normal Cardiovascular: Normal capillary refill Left Knee: No effusion. medial joint line tenderness. No pain with varus or valgus stress. Negative posterior drawer. Negative Zehra's. Increased pain with hyperflexion and external rotation of the tibia. Assessment: Diagnosis and Associated Orders ICD-10-CM 1. Arthritis of left knee M17.12 Physical Therapy Plan: Educated the patient regarding her condition and management. She expressed desire for cortisone injection. We discussed not obtaining a cortisone injection if she is going to get a knee replacement in the near future. After a discussion recommended physical therapy. Forms were given. The patient verbalized understanding. Scribe Disclosure: I, María Garvey, am serving as a scribe to document services personally performed by Rodney Pal MD at this visit, based upon the provider's statements to me. All documentation has been reviewed by the aforementioned provider prior to being entered into the official medical record. Portions of this medical record were completed by a scribe. UPON MY REVIEW AND AUTHENTICATION BY ELECTRONIC SIGNATURE, this confirms (a) I performed the applicable clinical services, and (b) the recordis accurate. oRdney Pal MD documented in this encounter Plan of Treatment Scheduled Referrals Name Type Priority Associated Diagnoses Order S chedule Physical Therapy Referral Routine Arthritis of left knee O rdered: 12/03/2017 documented as of this encounter Visit Diagnoses Diagnosis Arthritis of left knee - Primary Unspecified arthropathy, lower leg documented in this encounter
--- OUTSIDE RECORDS SUMMARY | 2022-06-09 15:04 | XMS_ITS | Encounter Summary ---
:1960 Author Organization [employer] Address [address] [place] [address] Care Team Providers Name Role Phone Adarsh Salazar MD Primary Care Provider Reason for Visit Reason Comments QUESTIONS, GENERAL Encounter Details Date Type Department Care Team Description 2018 Telephone [facility] Rodney Gloria MD QUESTIONS, GENERAL [address] [address] [place] [address] [address] [place] [address] [phone] (Wo rk) Social History Tobacco Use Types Packs/Day Years Used Date Smoking Tobacco: Never Smokeless Tobacco: Never Sex Assigned at Date Recorded Not on file documented as of this encounter Nursing Notes Holli Crowley RN - 2018 11:31 AM CDT Pt transferred to nurse per AA; she had questions related to icing/elevating operative extremity. S/P left TKA 02/11/18. Pt instructed to ice and elevate operative extremity simultaneously avoiding placement of pillows directly behind knee. Pt verbalized understanding and agreed to call back if further questions. documented in this encounter Plan of Treatment Not on filedocumented as of this encounter Visit Diagnoses Not on filedocumented in this encounter Care Teams Veneer Gluer Relationship Specialty Start Date End Date Adarsh Salazar MD PCP - General Urgent Care 02/11/18 [address] [place] [address] documented as of this encounter
[2022-06-09 20:50] LABS: Chloride* 103 mmol/L (96-114); Potassium* 3.9 mmol/L (3.6-5.1); Sodium* 142 mmol/L (135-149)
[2022-06-09 20:53] LABS: Carbon Dioxide* 32 mmol/L (20-32); Creatinine* 0.9 mg/dL (0.5-1.5); Estimated Glomerular Filt Rate 72 ml/min
[2022-06-09 20:54] LABS: Blood Urea Nitrogen* 16 mg/dL (7-30); Calcium* 9.9 mg/dL (8.4-10.6); Glucose* 124 mg/dL (60-115)
== END 2022-06-09 15:02 | disposition home or self-care (01) ==
LOC: NFLDREF 15:02
PROVIDERS: PCP Family Medicine; Visit Provider Family Medicine
DX: I10 Essential (primary) hypertension (principal)
CPT/HCPCS: 80048

== ENCOUNTER 2024-06-21 11:46 | Outpatient (CLI) | payer MEDICARE, OTHER, SELFPAY ==
--- OUTSIDE RECORDS SUMMARY | 2024-06-21 11:50 | XMS_ITS | Clinical Summary ---
Author Organization On license of [facility] Address [address], [place] [address] Care Team Providers Care Upper Lining Cementer Name Role Phone Adarsh Salazar MD Primary Care Provider [phone] Source Comments You are receiving this document as you are listed as the primary care provider,follow-up provider, or the patient has been referred to you for consultation.This is in compliance with the Medicare and[facility] E[facility],which states Providers who transition their patient to another setting of careor provider of care or refers their patient to another provider of care shouldprovide summary care record for each transition of care or referral. [facility] Allergies No known active allergies Medications Medication Sig Dispensed Refills Start Date End Date Status senna (SENOKOT) 8.6 MG tabletIndications :Constipation Take 1 Tablet by mouth daily. Take while on narcotics. Hold for loose stools. Indications: Constipation 30 Tablet 02/11/2018 Active acetaminophen (TYLENOL) 325 MG tabletIndications :Pain Take 2 Tablets by mouth 4 times a day. 24 hour limit of acetaminophen (TYLENOL) is 4000mg. Each tablet contains 325mg of acetaminophen. Please be aware of acetaminophen limit when taking other medications that contain acetaminophen. Indications: Pain 100 Tablet 02/11/2018 Active HYDROmorphone (DILAUDID) 2 MG tablet Take 1-2 Tablets by mouth every 4 hours as needed for Pain. Take 1 tablet for pain rated at 0-5. Take 2 tablets for pain rated 6-10. 56 Tablet 02/11/2018 Active hydroCHLOROthiazi de (ORETIC) 25 MG tabletIndications :Hypertension Take 25 mg by mouth daily. Indications: High Blood Pressure Disorder Active Meloxicam (MOBIC) 15 MG tabletIndications :Pain Take 15 mg by mouth daily. Indications: Pain Active metoprolol succinate (TOPROL XL) 100 MG 24 hour release tabletIndications :Hypertension Take 100 mg by mouth daily at bedtime. Indications: High Blood Pressure Disorder Active HYDROcodone-aceta minophen (NORCO) 5-325 MG tablet Take 1 Tablet by mouth every 6 hours as needed. For post op pain. 30 Tablet 02/24/2018 Active oxyCODONE (ROXICODONE) 5 MG immediate release tablet Take 1-2 tablets by mouth, every 4-6 hours as needed. Pain 42 Tablet 02/25/2018 Active Active Problems Problem Noted Date Diagnosed Date Primary osteoarthritis of left knee 12/20/2017 Overview (12/20/2017): Added automatically from request for surgery [id number] Family History Medical History Relation Name Comments Heart Disease Father Cancer Mother Cancer Sister Relation Name Status Comments Father Mother Sister Social History Tobacco Use Types Packs/Day Years Used Date Smoking Tobacco: Never Smokeless Tobacco: Never Sex and Gender Information Value Date Recorded Sex Assigned at Not on file Gender Identity Not on file Sexual Orientation Not on file Last Filed Vital Signs Vital Sign Reading Time Taken Comments Blood Pressure 126/65 02/12/2018 10:56 AM CDT Pulse 67 02/12/2018 10:56 AM CDT Temperature 36.6 C (97.9 F) 02/12/2018 10:56 AM CDT Respiratory Rate 16 [...] Plan Due 1959 Hep C Screening (Preventive Services) 1960 Mammogram 1959 Adult Preventive Visit 1977 Cholesterol 02/18/2004 Zoster/Shingles (1 of 2) 2009 Pneumococcal 65+ Yrs (1 - PCV) 02/18/2024 COVID-19 Vaccine (1 - 2023-2 5 season) 2024 Influenza (#1) 2024 DTaP/Tdap/Td (2 - Tdap) 03/07/2026 03/07/2016 RSV (1 - 1-dose 75+ series) 2034 HepA Aged Out No longer eligi ble based on patient's age to complete this topic HepB Aged Out No longer eligi ble based on patient's age to complete this topic Hib Aged Out No longer eligi ble based on patient's age to complete this topic IPV (Polio) Aged Out No longer eligi ble based on patient's age to complete this topic Infant RSV Aged Out No longer eligi ble based on patient's age to complete this topic MCV4 Aged Out No longer eligi ble based on patient's age to complete this topic Medical Devices Implanted Type Area Porter Marina Device Identifier Shelf Expiration Date Model / Serial / Lot Cement Bone Palacos R - [id number] Implanted:Qty: 1 on 02/11/2018 by Rodney Moore MD at [facility] DEVICE Left: KNEE [employer] 07/18/2022 [id number] / 0000 / [id number] Fem Jrnybcs Oxin Lt Sz 5 - [id number] Implanted:Qty: 1 on 02/11/2018 by Rodney Moore MD at [facility] DEVICE Left: KNEE S 12/05/2027 [id number] / 0000 / [id number] Patella Resurf Journy Std 32mm - [id number] Implanted:Qty: 1 on 02/11/2018 by Rodney Moore MD at [facility] DEVICE Left: KNEE S 10/30/2027 [id number] / 0000 / [id number] Baseplt Tib Journey Sz4 Lt - [id number] Implanted:Qty: 1 on 02/11/2018 by Rodney Moore MD at [facility] DEVICE Left: KNEE S 11/01/2027 [id number] / 0000 / [id number] Insert Xlpe Art 3-4 Lt 10mm - [id number] Implanted:Qty: 1 on 02/11/2018 by Rodney Moore MD at [facility] DEVICE Left: KNEE S 06/23/2025 [id number] / 0000 / [id number] Advance Directives * Full Code (Latest Code Status on File) Date Activated Date Inactivated Comments 02/11/2018 1:26 PM 02/12/2018 5:26 PM Care Teams Upper Lining Cementer Relationship Specialty Start Date End Date Adarsh Salazar MD [address] [place] [address] PCP - General Urgent Care 02/11/18
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
== END 2024-06-21 11:47 | disposition home or self-care (01) ==
PROVIDERS: PCP Nurse Practitioner Family; Visit Provider Nurse Practitioner Family
DX: I10 Essential (primary) hypertension (principal); E66.01 Morbid (severe) obesity due to excess calories; R73.09 Other abnormal glucose; Z13.6 Encounter for screening for cardiovascular disorders
CPT/HCPCS: 80053; 80061

== ENCOUNTER 2024-06-21 22:11 | Outpatient (REF) | payer MEDICARE, OTHER, SELFPAY ==
--- OUTSIDE RECORDS SUMMARY | 2024-06-21 22:25 | XMS_ITS | Clinical Summary ---
Author Organization [facility] Address [address], [place] [address] Care Team Providers Care Maintenance Chief Name Role Phone Adarsh Salazar MD Primary Care Provider [phone] Source Comments You are receiving this document as you are listed as the primary care provider,follow-up provider, or the patient has been referred to you for consultation.This is in compliance with the Medicare and[facility] E[facility] Incentive [facility],which states Providers who transition their patient to another setting of careor provider of care or refers their patient to another provider of care shouldprovide summary care record for each transition of care or referral. [facility] Allergies No known active allergies [...] (12/20/2017): Added automatically from request for surgery [id number] Family History Medical History Relation Name Comments [...] this topic Medical Devices Implanted Type Area Certified Home Health Aide Device Identifier Shelf Expiration Date Model / Serial / Lot Cement Bone Palacos R - [id number] Implanted:Qty: 1 on 02/11/2018 by Rodney Moore MD at [facility] DEVICE Left: KNEE [employer] 07/18/2022 [id number] / 0000 / [id number] Fem Jrnybcs Oxin Lt Sz 5 - [id number] Implanted:Qty: 1 on 02/11/2018 by Rodney Moore MD at [facility] DEVICE Left: KNEE S 12/05/2027 [id number] / 0000 / [id number] Patella Resurf Journy Std 32mm - [id number] Implanted:Qty: 1 on 02/11/2018 by Rodney Moore MD at [facility] DEVICE Left: KNEE S 10/30/2027 [id number] / 0000 / [id number] Baseplt Tib Journey Sz4 Lt - [id number] Implanted:Qty: 1 on 02/11/2018 by Rodney Moore MD at [facility] DEVICE Left: KNEE S 11/01/2027 [id number] / 0000 / [id number] Insert Xlpe Art 3-4 Lt 10mm - [id number] Implanted:Qty: 1 on 02/11/2018 by Rodney Moore MD at [facility] DEVICE Left: KNEE S 06/23/2025 [id number] / 0000 / [id number] Advance Directives * Full Code (Latest Code Status on File) Date Activated Date Inactivated Comments 02/11/2018 1:26 PM 02/12/2018 5:26 PM Care Teams Maintenance Chief Relationship Specialty Start Date End Date Adarsh Salazar MD [address] [place] [address] PCP - General Urgent Care 02/11/18
--- OUTSIDE RECORDS SUMMARY | 2024-06-21 22:25 | XMS_ITS | Clinical Summary ---
Author Organization [employer] [facility] Address [place], [place] [address] Care Team Providers Care Long Lines Operator Name Role Phone Rodney Moore MD Unavailable [phone] Pan Langston DO Primary Care Provider + [...] Comments Blood Pressure 167/95 07/09/2023 8:29 AM MARKETING ADMINISTRATIVE ASSISTANT Pulse 70 07/09/2023 8:29 AM MARKETING ADMINISTRATIVE ASSISTANT Temperature 36.6 C (97.8 F) 05/21/2021 10:42 AM CDT Respiratory Rate 16 10/08/2020 11:07 AM CDT Oxygen Saturation 100% 10/08/2020 11:07 AM CDT Inhaled Oxygen Concentration - - Weight 122.5 kg (270 lb) 07/09/2023 8:27 AM MARKETING ADMINISTRATIVE ASSISTANT Height 162.6 cm (5' 4) 05/21/2021 10:42 [...] booster 03/07/2026 03/07/2016 (Comp leted outside of [facility]), 03/07/2016 Hepatitis C screening for ag e 18-79 Completed 08/17/2014 Tdap Completed 03/07/2016 (Comp leted outside of [facility]), 03/07/2016 COVID-19 vaccine series Discontinued Zoster (shingles) series for age 50+ Discontinued Medical Devices Implanted Type Area Director Distribution Device Identifier Shelf Expiration Date Model / Serial / Lot Cmnt Bone 40g Simplex P Atb Mv Tobramycin - [id number] Implanted:Qty: 2 on 10/07/2020 by Yinka Mata MD at [facility] Right: Knee [employer] 11/15/2021 6197-9-010 / / [id number] Baseplate Tib Sz 4 Triathlon Pe - [id number] Implanted:Qty: 1 on 10/07/2020 by Yinka Mata MD at [facility] Right: Knee [employer] 05/07/2025 5521-B-400 / / [id number] Fem Rt Sz 3 Triathlon Cruc Retco Cr - [id number] Implanted:Qty: 1 on 10/07/2020 by Yinka Mata MD at [facility] Right: Knee [employer] [facility] 01/26/2024 5510-F-302 / / [id number] Tibial Bearing Insert Implanted:Qty: 1 on 10/07/2020 by Yinka Mata MD at [facility] Right: Knee 10/12/2024 5531-G-411 -E / / [id number] Description:TIBIAL BEARING I NSERT Patella Triathlon X3 Symmetric Implanted:Qty: 1 on 10/07/2020 by Yinka Mata MD at [facility] Right: Knee 06/27/2025 5550-G319- E / / [id number] Description:PATELLA TRIATHLO N X3 SYMMETRIC Procedures Procedure Name Priority Date/Time Associated Diagnosis Comments LIPID PANEL Routine 04/29/2020 9:04 AM CDT Hyperlipidemia, unspecified hyperlipidemia type SALES MERCHANDISER THIN PREP PAP SCREEN IMAGED Routine 11/12/2015 12:00 PM CDT XR FFDM MAMMO ACS SCREENING BILATERAL (IA) Routine 08/27/2014 12:00 AM MARKETING ADMINISTRATIVE ASSISTANT Other screening mammogram ANTI HCV Routine 08/17/2014 9:20 AM MARKETING ADMINISTRATIVE ASSISTANT Need for hepatitis C screening test from Last 3 Months or Most Recently Relevant to Health Maintenance Results * (ABNORMAL) Lipid panel, fasting (yearly) (04/29/2020 9:04 AM CDT) CHOLESTEROL,TOTAL 260(H) 100 - 199 mg/dL 04/29/2020 12:35 PM CDT [facility] TRIGLYCERIDES 136 <150 mg/dL 04/29/2020 12:35 PM CDT [facility] TR[facility] LAB[facility] HDL CHOLESTEROL 41 >40 mg/dL 0 12:35 PM CDT [facility] NON-HDL CHOLESTEROL 219(H) <145 mg/dl 04/29/2020 12:35 PM CDT [facility] CHOL/HDL RATIO 6.34(H) <4.50 04/29/2020 12:35 PM CDT [facility] LDL CHOLESTEROL 192(H) <=130 mg/dL 04/29/2020 12:35 PM CDT [facility] TR[facility] PROVIDER ORDERED STATUS RANDOM 04/29/2020 12:35 PM CDT [facility] Blood BLOOD SPECIMEN / Unknown Venipuncture / Unknown 04/29/2020 9:04 AM CDT 04/29/2020 9:04 AM CDT Pan Langston DO CHEMISTRY [facility] [address] [place] [address], [place] * SALES MERCHANDISER THIN PREP PAP SCREEN IMAGED (11/12/2015 12:00 PM CDT) SALES MERCHANDISER CYTOLOGY See Anatomic Pathology case 11/13/2015 8:00 PM CDT [facility] Specimen (specimen) (Cervical) Client Collect / Unknown 11/12/2015 12:00 PM CDT 11/12/2015 7:39 PM CDT Aleyda Fernandez MD PATHOLOGY/C YTOLOGY [facility] [address] [place] [address], [place] * XR FFDM MAMMO ACS SCREENING BILATERAL (08/27/2014 12:00 AM MARKETING ADMINISTRATIVE ASSISTANT) Anatomical Region Laterality Modality BREASTS, Breast Left, Breast Right Bilateral Other Narrative 08/29/2014 10:41 PM MARKETING ADMINISTRATIVE ASSISTANT Procedure Note Scanner - 08/27/2014 12:00 AM CST Oscar Wills MD MAMMO * ANTI HCV [[id number]] (08/17/2014 9:20 AM MARKETING ADMINISTRATIVE ASSISTANT) HEPATITIS C ANTIBODY Non-Reacti ve Non-Reacti ve 08/17/2014 1:25 PM MARKETING ADMINISTRATIVE ASSISTANT [facility] Blood specimen (specimen) BLOOD SPECIMEN / Unknown Venipuncture / Unknown 08/17/2014 9:20 AM MARKETING ADMINISTRATIVE ASSISTANT 08/17/2014 9:20 AM MARKETING ADMINISTRATIVE ASSISTANT Narrative [facility] - 08/17/2014 1:25 PM MARKETING ADMINISTRATIVE ASSISTANT Antibodies to HCV not detected; does not exclude the possibility of exposure to HCV. Oscar Wills MD SEND OUTS [facility] [address] [place] [address], from Last 3 Months or Most Recently Relevant to Health Maintenance Advance Directives * Full Code (Latest Code Status on File) Date Activated Date Inactivated Comments 10/07/2020 11:37 AM 10/08/2020 3:18 PM Question Answer Comments Code Status Discussion: Not Discussed Care Teams Long Lines Operator Relationship Specialty Start Date End Date Pan Langston DO [address] [facility] [address] [place] [address] PCP - General Internal Medicine 09/25/20 Rodney Moore MD Orthopedics Surgery - Orthopedics 01/31/18
[2024-06-21 22:56] LABS: Basophils Absolute Auto 0.05 K/uL (0.00-0.30); Basophils Percent Auto 0.7 % (0.0-3.0); Eosinophils Absolute Auto 0.16 K/uL (0.00-0.50); Eosinophils Percent Auto 2.2 % (0.0-7.0); Hematocrit 43.9 % (33.0-51.0); Hemoglobin* 14.3 gm/dL (12.0-16.0); Immature Granulocytes Abs Auto 0.01 K/uL (0.00-0.30); Immature Granulocytes Pct Auto 0.1 %; Lymphocytes Absolute Auto 2.68 K/uL (0.90-2.90); Lymphocytes Percent Auto 36.9 % (20-44); Mean Corpuscular HGB Conc 33 gm/dL (32-36); Mean Corpuscular Hemoglobin 29 pg (26-34); Mean Corpuscular Volume 90 fL (80-100); Monocytes Percent Auto 6.3 % (0.0-11.0); Neutrophils Percent Auto 53.8 % (42.0-72.0); Platelet Count* 280 K/uL (140-440); RDW Coefficient of Variation % 13.1 % (11.5-15.5); Red Blood Count 4.89 m/uL (4.00-5.20); White Blood Count* 7.26 K/uL (4.50-11.00)
[2024-06-21 23:07] LABS: C Reactive Protein* 0.8 mg/dL (0.5-1.0)
[2024-06-21 23:09] LABS: Slide Review Reflex No
[2024-06-21 23:41] LABS: Erythrocyte SedimentationRate* 19 mm/hr (2-20)
[2024-06-24 04:57] LABS: CCP Antibody, IgG and IgA 4 Units (0-19)
[2024-06-24 12:35] LABS: Anti-Nuclear Ab(ANA)IgG ELISA None Detected (None Detected)
[2024-06-24 21:33] LABS: Rheumatoid Factor <10 IU/mL (0-14)
== END 2024-06-21 22:12 | disposition home or self-care (01) ==
LOC: NPINS 22:11
PROVIDERS: PCP Nurse Practitioner Family; Visit Provider Orthopaedic Surgery
DX: I10 Essential (primary) hypertension (principal); E66.01 Morbid (severe) obesity due to excess calories; R73.09 Other abnormal glucose; Z13.6 Encounter for screening for cardiovascular disorders
CPT/HCPCS: 85025; 85651; 86038; 86140; 86200; 86431